=== PATIENT | male | born 1935 | race Caucasian/White ===

== ENCOUNTER 2021-02-05 11:17 | Inpatient (IN) | payer MEDICARE, MEDICAID, SELFPAY ==
[2021-02-05] VITALS (11 sets, daily range): BP systolic 85–123; BP diastolic 41–86; PULSE 106–147; RESP 14–30; O2SAT 92–99; BMI 34.9
--- NOTE | 2021-02-05 11:19 | W.ED.GENADLT ---
HPI - General Adult General: Chief complaint: General Medical Stated complaint: BLOOD IN URINE, ALOC Time Seen by Provider: 02/05/21 11:19 History of Present Illness: HPI narrative: Len Burgess is an 85-year-old gentleman with unclear past medical history presents emerged department due to altered mental status. At baseline he does reside in a custodial however is ambulatory and talkative and oriented. Starting an unclear amount of time ago he became altered and had hematuria. History is otherwise limited by mental status. The patient provides no supplemental history. 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, suprarenal Atrial fibrillation CHF (congestive heart failure) COVID-19 (01/21/21) Positive test at [facility] facility 01/21/2021 Negative rapid antigen here 02/05/2021 COVID-19 vaccine administered GERD (gastroesophageal reflux disease) Gross hematuria Hyperlipidemia Hypertension Prosthetic eye globe Right eye Urinary retention Social History (Updated 02/05/21 @ 23:29 by Kimberli Henry MD) Smoking and tobacco status: former smoker Alcohol intake: former Marital status: / Current occupational status: retired Physical Exam Narrative: EXAM NARRATIVE: GENERAL/CONSTITUTIONAL -ill-appearing. Moaning Eyes - PERRL, right eye mild injection and drainage ENMT - Atraumatic external nose and ears. Moist mucous membranes NECK -kyphosis. Trachea midline. CARDIOVASCULAR -A. fib with RVR. RESPIRATORY -coarse breath sounds with transmitted upper airway noises. Tachypnea.. No retractions or accessory muscle use. ABDOMEN/GI -patient moans to palpation but otherwise limited assessment MSK - Extremities without obvious deformity or tenderness to palpation SKIN -cool, Dry NEURO -appears to move all extremities. Moaning. No other history provided. PSYCH - impaired cognition and memory. Course ED course: - Patient was seen and evaluated by me at bedside - Patient placed on cardiac monitors, IV access obtained - Initial evaluation notable for ill appearance as noted above, patient appears toxic with A. fib with RVR. -Fluids and antibiotics ordered. Rate control ordered. - Labs notable for Leukocytosis, hemoconcentration. Metabolic panel notable for markedly elevated BUN and elevated creatinine with somewhat unclear baseline. Procalcitonin elevated. Urinalysis not concerning for urinary tract infection. - Imaging notable for no evidence of acute intercranial hemorrhage for reason of altered mental status. No intra-abdominal pathology as source of infection. Patient has multifocal pneumonia. -Patient did have improvement with heart rate and overall clinical appearance with rate control. Given septic shock I was hesitant to add additional rate control agents once heart rate stayed around 100-110 given likely need for increased cardiac output in the context of critical illness. -Initially discussed the case with the hospitalist however there are no ICU bed available at this facility. -Attempted transfer for a number of hours without acceptance -Patient's overall clinical picture remains critical but he improved with mild improvement in labs and mental status/overall impression. -Patient was reevaluated by hospitalist service and will be accepted - Based on patient history, evaluation, labs, and imaging as interpreted the most likely cause of the patient's condition is severe sepsis, uremia, altered mental status, and atrial fibrillation with RVR. - Early in ED course I did speak with the patient's daughter and updated her on his condition. She wants all interventions including CPR with exception of intubation and mechanical ventilation. - Patient admitted in serious condition though overall improved from usual clinical presentation - Additional critical care time was necessary on this patient to prevent life-threatening deterioration given the duration of ED stay. Vital Signs: Vital signs: Vital Signs Temperature 97.6 F 02/06/21 16:00 Pulse Rate 101 H 02/07/21 05:07 Respiratory Rate 29 H 02/07/21 04:00 Blood Pressure 106/64 02/07/21 04:00 Pulse Oximetry 80 L 02/06/21 01:15 [facility] - General Adult Medical Records: Attestation: I reviewed the patient's medical records. Lab Data: Attestation: I reviewed the patient's lab results. Labs: Lab Results 02/05/21 02/05/21 02/05/21 Range/Units 11:28 11:28 11:28 WBC 19.2 H (4.0-10.0) 10^3/ uL RBC 5.58 H (4.1-5.3) 10^6/u L Hgb 17.9 H (11.7-16.6) g/dL Hct 53.4 H (42.0-52.0) % MCV 95.7 H (80-94) fl MCH 32.1 (28.0-34.0) pg MCHC 33.5 (30.0-36.0) g/dL RDW 13.6 (12.1-15.1) % Plt Count 321 (130-400) 10^3/c mm MPV 11.5 H (7.4-10.4) fL Neut % (Auto) 87.6 % Lymph % (Auto) 5.3 % [place] % (Auto) 5.6 % Eos % (Auto) 0.0 % Baso % (Auto) 0.5 % Neut # (Auto) 16.81 H (1.8-7.7) 10^3/u L Lymph # (Auto) 1.0 (0.8-4.8) 10^3/u L [place] # (Auto) 1.1 H (0.2-0.9) 10^3/u L Eos # (Auto) 0.0 (0.0-0.8) 10^3/u L Baso # (Auto) 0.1 (0.0-0.1) 10^3/u L Nucleated RBC % (a uto) 0.1 % Nucleated RBCs # 0.0 /100WBC Sodium 143 (136-145) mmol/L Potassium 3.8 (3.5-5.1) mmol/L Chloride 91 L (98-107) mmol/L Carbon Dioxide 33 H (22-29) mmol/L Anion Gap 22.8 H (5-19) BUN 112 H* (8-23) mg/dL Creatinine 2.8 H (0.7-1.2) mg/dL GFR Calculation Not Reportable Glucose 237 H (65-115) mg/dL POC Glucose (70-110) mg/dL Calculated Osmolal ity 339 H (285-295) mOsm/k g Lactic Acid (0.5-2.2) mmol/L Lactic Acid (Sepsi s) (0.5-2.2) mmol/L Uric Acid (3.4-7.0) mg/dL Calcium 8.9 (8.5-10.5) mg/dL Phosphorus (2.5-4.5) mg/dL Magnesium (1.7-2.3) mg/dL Total Bilirubin 0.7 (0.15-1.2) mg/dL AST 23 (0-40) U/L ALT 13 (0-41) U/L Alkaline Phosphata se 94 (40-130) IU/L Creatine Kinase (39-308) U/L Troponin T Baselin e 70 H (0-15) ng/L Troponin T 120 Min [place] (0-15) ng/L Delta Troponin T (0-10) ABS# Troponin T Hi Sens 6Hr (0-15) ng/L Troponin T Hi Sens 6Hr Delta (0-12) ng/L Total Protein 7.5 (6.6-8.7) g/dL Albumin 3.5 (3.5-5.2) g/dL Globulin 4.0 (1.3-4.6) g/dL Procalcitonin 0.27 (0-0.5) ng/mL Urine Color (Yellow) Urine Appearance (CLEAR) Urine pH (5-7) Ur Specific Gravit y (1.005-1.030) Urine Protein (Negative) Urine Glucose (UA) (Normal) Urine Ketones (Negative) Urine Blood (Negative) Urine Nitrate (Negative) Urine Bilirubin (Negative) Urine Urobilinogen (Negative) mg/dL Ur Leukocyte Marti ase (Negative) Urine RBC (0-2) /hpf Urine WBC (0-5) /hpf Ur Squamous Epith Cells (0-5) /hpf Amorphous Sediment Urine Bacteria (NONE) /hpf SARS-CoV-2 Ag (Rap id) (Negative) 02/05/21 02/05/21 02/05/21 Range/Units 13:08 13:08 15:10 WBC (4.0-10.0) 10^3/ uL RBC (4.1-5.3) 10^6/u L Hgb (11.7-16.6) g/dL Hct (42.0-52.0) % MCV (80-94) fl MCH (28.0-34.0) pg MCHC (30.0-36.0) g/dL RDW (12.1-15.1) % Plt Count (130-400) 10^3/c mm MPV (7.4-10.4) fL Neut % (Auto) % Lymph % (Auto) % [place] % (Auto) % Eos % (Auto) % Baso % (Auto) % Neut # (Auto) (1.8-7.7) 10^3/u L Lymph # (Auto) (0.8-4.8) 10^3/u L [place] # (Auto) (0.2-0.9) 10^3/u L Eos # (Auto) (0.0-0.8) 10^3/u L Baso # (Auto) (0.0-0.1) 10^3/u L Nucleated RBC % (a uto) % Nucleated RBCs # /100WBC Sodium (136-145) mmol/L Potassium (3.5-5.1) mmol/L Chloride (98-107) mmol/L Carbon Dioxide (22-29) mmol/L Anion Gap (5-19) BUN (8-23) mg/dL Creatinine (0.7-1.2) mg/dL GFR Calculation Glucose (65-115) mg/dL POC Glucose 182 H (70-110) mg/dL Calculated Osmolal ity (285-295) mOsm/k g Lactic Acid 4.1 H* (0.5-2.2) mmol/L Lactic Acid (Sepsi s) (0.5-2.2) mmol/L Uric Acid (3.4-7.0) mg/dL Calcium (8.5-10.5) mg/dL Phosphorus (2.5-4.5) mg/dL Magnesium (1.7-2.3) mg/dL Total Bilirubin (0.15-1.2) mg/dL AST (0-40) U/L ALT (0-41) U/L Alkaline Phosphata se (40-130) IU/L Creatine Kinase (39-308) U/L Troponin T Baselin e (0-15) ng/L Troponin T 120 Min [place] 66.08 H (0-15) ng/L Delta Troponin T -3.92 L (0-10) ABS# Troponin T Hi Sens 6Hr (0-15) ng/L Troponin T Hi Sens 6Hr Delta (0-12) ng/L Total Protein (6.6-8.7) g/dL Albumin (3.5-5.2) g/dL Globulin (1.3-4.6) g/dL Procalcitonin (0-0.5) ng/mL Urine Color (Yellow) Urine Appearance (CLEAR) Urine pH (5-7) Ur Specific Gravit y (1.005-1.030) Urine Protein (Negative) Urine Glucose (UA) (Normal) Urine Ketones (Negative) Urine Blood (Negative) Urine Nitrate (Negative) Urine Bilirubin (Negative) Urine Urobilinogen (Negative) mg/dL Ur Leukocyte Marti ase (Negative) Urine RBC (0-2) /hpf Urine WBC (0-5) /hpf Ur Squamous Epith Cells (0-5) /hpf Amorphous Sediment Urine Bacteria (NONE) /hpf SARS-CoV-2 Ag (Rap id) (Negative) 02/05/21 02/05/21 02/05/21 Range/Units 15:15 16:55 16:55 WBC (4.0-10.0) 10^3/ uL RBC (4.1-5.3) 10^6/u L Hgb (11.7-16.6) g/dL Hct (42.0-52.0) % MCV (80-94) fl MCH (28.0-34.0) pg MCHC (30.0-36.0) g/dL RDW (12.1-15.1) % Plt Count (130-400) 10^3/c mm MPV (7.4-10.4) fL Neut % (Auto) % Lymph % (Auto) % [place] % (Auto) % Eos % (Auto) % Baso % (Auto) % Neut # (Auto) (1.8-7.7) 10^3/u L Lymph # (Auto) (0.8-4.8) 10^3/u L [place] # (Auto) (0.2-0.9) 10^3/u L Eos # (Auto) (0.0-0.8) 10^3/u L Baso # (Auto) (0.0-0.1) 10^3/u L Nucleated RBC % (a uto) % Nucleated RBCs # /100WBC Sodium (136-145) mmol/L Potassium (3.5-5.1) mmol/L Chloride (98-107) mmol/L Carbon Dioxide (22-29) mmol/L Anion Gap (5-19) BUN (8-23) mg/dL Creatinine (0.7-1.2) mg/dL GFR Calculation Glucose (65-115) mg/dL POC Glucose (70-110) mg/dL Calculated Osmolal ity (285-295) mOsm/k g Lactic Acid (0.5-2.2) mmol/L Lactic Acid (Sepsi s) 3.5 H (0.5-2.2) mmol/L Uric Acid (3.4-7.0) mg/dL Calcium (8.5-10.5) mg/dL Phosphorus (2.5-4.5) mg/dL Magnesium (1.7-2.3) mg/dL Total Bilirubin (0.15-1.2) mg/dL AST (0-40) U/L ALT (0-41) U/L Alkaline Phosphata se (40-130) IU/L Creatine Kinase (39-308) U/L Troponin T Baselin e (0-15) ng/L Troponin T 120 Min [place] (0-15) ng/L Delta Troponin T (0-10) ABS# Troponin T Hi Sens 6Hr 59.59 H (0-15) ng/L Troponin T Hi Sens 6Hr Delta -10.41 L (0-12) ng/L Total Protein (6.6-8.7) g/dL Albumin (3.5-5.2) g/dL Globulin (1.3-4.6) g/dL Procalcitonin (0-0.5) ng/mL Urine Color Red (Yellow) Urine Appearance Turbid (CLEAR) Urine pH 7 (5-7) Ur Specific Gravit y 1.005 (1.005-1.030) Urine Protein 3+ H (Negative) Urine Glucose (UA) Norm (Normal) Urine Ketones Negative (Negative) Urine Blood 3+ H (Negative) Urine Nitrate Negative (Negative) Urine Bilirubin Neg (Negative) Urine Urobilinogen Norm (Negative) mg/dL Ur Leukocyte Marti ase 2+ H (Negative) Urine RBC Too numerous to c nt H (0-2) /hpf Urine WBC 15-25 H (0-5) /hpf Ur Squamous Epith Cells 0-4 H (0-5) /hpf Amorphous Sediment Not Reportable Urine Bacteria 2+ H (NONE) /hpf SARS-CoV-2 Ag (Rap id) (Negative) 02/05/21 02/05/21 02/05/21 Range/Units 16:58 21:19 21:19 WBC (4.0-10.0) 10^3/ uL RBC (4.1-5.3) 10^6/u L Hgb (11.7-16.6) g/dL Hct (42.0-52.0) % MCV (80-94) fl MCH (28.0-34.0) pg MCHC (30.0-36.0) g/dL RDW (12.1-15.1) % Plt Count (130-400) 10^3/c mm MPV (7.4-10.4) fL Neut % (Auto) % Lymph % (Auto) % [place] % (Auto) % Eos % (Auto) % Baso % (Auto) % Neut # (Auto) (1.8-7.7) 10^3/u L Lymph # (Auto) (0.8-4.8) 10^3/u L [place] # (Auto) (0.2-0.9) 10^3/u L Eos # (Auto) (0.0-0.8) 10^3/u L Baso # (Auto) (0.0-0.1) 10^3/u L Nucleated RBC % (a uto) % Nucleated RBCs # /100WBC Sodium 143 (136-145) mmol/L Potassium 3.4 L (3.5-5.1) mmol/L Chloride 100 (98-107) mmol/L Carbon Dioxide 28 (22-29) mmol/L Anion Gap 18.4 (5-19) BUN 110 H* (8-23) mg/dL Creatinine 2.2 H (0.7-1.2) mg/dL GFR Calculation Not Reportable Glucose 139 H (65-115) mg/dL POC Glucose (70-110) mg/dL Calculated Osmolal ity 333 H (285-295) mOsm/k g Lactic Acid (0.5-2.2) mmol/L Lactic Acid (Sepsi s) (0.5-2.2) mmol/L Uric Acid 16.6 H (3.4-7.0) mg/dL Calcium 8.3 L (8.5-10.5) mg/dL Phosphorus 5.3 H (2.5-4.5) mg/dL Magnesium 2.9 H (1.7-2.3) mg/dL Total Bilirubin (0.15-1.2) mg/dL AST (0-40) U/L ALT (0-41) U/L Alkaline Phosphata se (40-130) IU/L Creatine Kinase 98 (39-308) U/L Troponin T Baselin e (0-15) ng/L Troponin T 120 Min [place] (0-15) ng/L Delta Troponin T (0-10) ABS# Troponin T Hi Sens 6Hr (0-15) ng/L Troponin T Hi Sens 6Hr Delta (0-12) ng/L Total Protein (6.6-8.7) g/dL Albumin (3.5-5.2) g/dL Globulin (1.3-4.6) g/dL Procalcitonin (0-0.5) ng/mL Urine Color (Yellow) Urine Appearance (CLEAR) Urine pH (5-7) Ur Specific Gravit y (1.005-1.030) Urine Protein (Negative) Urine Glucose (UA) (Normal) Urine Ketones (Negative) Urine Blood (Negative) Urine Nitrate (Negative) Urine Bilirubin (Negative) Urine Urobilinogen (Negative) mg/dL Ur Leukocyte Marti ase (Negative) Urine RBC (0-2) /hpf Urine WBC (0-5) /hpf Ur Squamous Epith Cells (0-5) /hpf Amorphous Sediment Urine Bacteria (NONE) /hpf SARS-CoV-2 Ag (Rap id) Negative (Negative) EKG Data^: EKG 1: EKG interpretation date: 02/05/21 EKG interpretation time: 11:27 Prior EKG tracings: not available for review Ischemic changes: non-specific ST-T wave changes Interpretation: Twelve-lead EKG shows an irregular rhythm at a rate of 147 without identified P waves. NE interval not applicable, QRS duration 120, QTc 471 Left axis deviation. Interpretation: A. fib with RVR Computer generated interpretation: Chest X-Ray 02/05/21 11:36 IMPRESSION: 1. Coarse chronic pulmonary markings. 2. Trace atelectasis or scar noted in the left lung base. Cervical Spine CT 02/05/21 11:50 IMPRESSION: 1. Quality of this examination is significantly limited by motion. No gross displaced fractures identified. Subtle fractures would easily be missed with this amount of motion. 2. 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 Chest/Abdomen/Pelvis CT 02/05/21 11:50 IMPRESSION: 1. Study is significantly limited by motion artifact. 2. Bilateral multi lobar pulmonary opacifications. Consider aspiration pneumonia. Not a typical distribution for Covid 19 but this should also be considered along with additional causes of pneumonitis. 3. Extensive atherosclerosis thoracic and abdominal aortas. Stable suprarenal abdominal aortic aneurysm to 3.[address] 02/05/21 22:41 IMPRESSION: 1. Right globe prosthesis. Left globe is unremarkable. 2. No acute intracranial abnormality demonstrated. 3. There is no interval change from the prior examination. Radiation Dose CTDIVOL = (mGy): DLP = 851.63 (mGy-cm) EKG 2: Attestation: I personally reviewed and interpreted this EKG as follows: EKG interpretation date: 02/05/21 EKG interpretation time: 13:27 Prior EKG tracings: available for review Interpretation: Twelve-lead EKG shows an irregular rhythm at a rate of 135 without identified P waves. NE interval not applicable, QRS duration 121, QTc 489 Left axis deviation. Interpretation: A. fib with RVR Computer generated interpretation: Chest X-Ray 02/05/21 11:36 IMPRESSION: 1. Coarse chronic pulmonary markings. 2. Trace atelectasis or scar noted in the left lung base. Cervical Spine CT 02/05/21 11:50 IMPRESSION: 1. Quality of this examination is significantly limited by motion. No gross displaced fractures identified. Subtle fractures would easily be missed with this amount of motion. 2. 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 Chest/Abdomen/Pelvis CT 02/05/21 11:50 IMPRESSION: 1. Study is significantly limited by motion artifact. 2. Bilateral multi lobar pulmonary opacifications. Consider aspiration pneumonia. Not a typical distribution for Covid 19 but this should also be considered along with additional causes of pneumonitis. 3. Extensive atherosclerosis thoracic and abdominal aortas. Stable suprarenal abdominal aortic aneurysm to 3.[address] 02/05/21 22:41 IMPRESSION: 1. Right globe prosthesis. Left globe is unremarkable. 2. No acute intracranial abnormality demonstrated. 3. There is no interval change from the prior examination. Radiation Dose CTDIVOL = (mGy): DLP = 851.63 (mGy-cm) EKG 3: Attestation: I personally reviewed and interpreted this EKG as follows: EKG interpretation date: 02/05/21 EKG interpretation time: 17:25 Prior EKG tracings: available for review Interpretation: Twelve-lead EKG shows an irregular rhythm at a rate of 119 without identified P waves. NE interval not applicable, QRS duration 125, QTc 480 Left axis deviation. Interpretation: A. fib with RVR Computer generated interpretation: Chest X-Ray 02/05/21 11:36 IMPRESSION: 1. Coarse chronic pulmonary markings. 2. Trace atelectasis or scar noted in the left lung base. Cervical Spine CT 02/05/21 11:50 IMPRESSION: 1. Quality of this examination is significantly limited by motion. No gross displaced fractures identified. Subtle fractures would easily be missed with this amount of motion. 2. 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 Chest/Abdomen/Pelvis CT 02/05/21 11:50 IMPRESSION: 1. Study is significantly limited by motion artifact. 2. Bilateral multi lobar pulmonary opacifications. Consider aspiration pneumonia. Not a typical distribution for Covid 19 but this should also be considered along with additional causes of pneumonitis. 3. Extensive atherosclerosis thoracic and abdominal aortas. Stable suprarenal abdominal aortic aneurysm to 3.[address] 02/05/21 22:41 IMPRESSION: 1. Right globe prosthesis. Left globe is unremarkable. 2. No acute intracranial abnormality demonstrated. 3. There is no interval change from the prior examination. Radiation Dose CTDIVOL = (mGy): DLP = 851.63 (mGy-cm) Critical Care Time Critical Care Time: Critical Care Time: Yes Total Critical Care Time: 170 Attestation: This case had a high probability of a clinically significant, sudden, or life threatening deterioration of this patient's condition which required my full and direct attention, intervention and personal management. 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
--- NOTE | 2021-02-05 11:36 | XRR_ITS ---
PROCEDURE INFORMATION: Exam: XR Chest Exam date and time: 02/05/2021 11:36 AM Age: 85 years old Clinical indication: Other: AMS TECHNIQUE: Imaging protocol: XR of the chest. Views: 1 view. Total images: 1 COMPARISON: CT abdomen pelvis wo con [id number] 10/22/2020 10:59 AM FINDINGS: Lungs: Coarse chronic pulmonary markings. Trace atelectasis or scar noted in the left lung base. Pleural spaces: Unremarkable. No pleural effusion. No pneumothorax. Heart/Mediastinum: Unremarkable. No cardiomegaly. Vasculature: Atherosclerosis is evident. Bones/joints: Left shoulder arthroplasty. Moderate degenerative changes of the right shoulder are noted. Osseous structures are unchanged from the prior exam. Other findings: X-ray is slightly rotated. XR/XR chest 1V portable [id number] IMPRESSION: 1. Coarse chronic pulmonary markings. 2. Trace atelectasis or scar noted in the left lung base.
--- NOTE | 2021-02-05 11:37 | ECG_ITS ---
[facility] Test Date: 2021-02-05 Pat Name: Len Burgess Department: Room: Gender: Male Physician'S Aide: : [id number] Requested By: Fuentes Kapoor Order Number: [id number] Leighton MD: Kathleen Medina M.D. Measurements Intervals [place] Rate: 147 P: ND: QRS: -73 QRSD: 120 T: 101 QT: 301 QTc: 471 Interpretive Statements ATRIAL FIBRILLATION WITH RAPID VENTRICULAR RESPONSE MARKED LEFT AXIS DEVIATION [QRS AXIS < -30] POSSIBLE RIGHT VENTRICULAR CONDUCTION DELAY [RSR (QR) IN V1/V2] VOLTAGE CRITERIA FOR LVH [MEETS CRITERIA IN ONE OF: R(aVL), S(V1), R(V5), R(V5/V6)+S(V1)] ST DEVIATION AND MODERATE T-WAVE ABNORMALITY, CONSIDER LATERAL ISCHEMIA [-0.1+ mV T WAVE IN I/aVL/V5/V6] No previous ECG available for comparison Electronically Signed On 02-05-2021 16:11:40 CDT by Kathleen Medina M.D. [id number]
--- NOTE | 2021-02-05 11:50 | CT_ITS ---
WS: [id number] CT HEAD NONCONTRAST HISTORY: AMS, ?stroke TECHNIQUE: Contiguous axial imaging performed through the brain in 2.5 mm imaging. Bone and soft tiss ue windows. Sagittal and coronal reformats reviewed. All CT scans at [facility] use at le ast one of these dose optimization techniques: automated exposure control; mA and/or kV adjustment pe r patient size (includes targeted exams where dose is matched to clinical indication); or iterative r econstruction. DLP: 1844.92 mGy.cm COMPARISON: None available. Study compromised by motion artifact. No acute intracranial hemorrhage, midline shift or mass effect. Moderate bilateral atrophy and chronic ischemic disease. No acute infarcts. Ventricles: Ventricles and extra-axial spaces are prominent on the basis of central and peripheral a trophy. Paranasal sinuses: As visualized are clear. Mastoid air cells: Well pneumatized. Calvarium and scalp: Skull is intact with no soft tissue edema or swelling. RIGHT globe prosthesis. Possible small aneurysm measuring 5 mm near the anterior communicating artery. May simply be tortuosi ty and ectatic vessel. CT/CT head wo con* [id number] IMPRESSION: 1. No acute intracranial hemorrhage or edema. 2. Moderate atrophy and chronic ischemic disease. 3. Indeterminate for 5 mm anterior communicating artery aneurysm. No evidence for rupture. Recommend follow-up CT angiogram of the [place]. Patient is having a very difficult time remaining still for the CT evaluations. Recomme nd follow-up for when the patient is able to hold still and follow commands.
--- NOTE | 2021-02-05 11:50 | CT_ITS ---
WS: [id number] CT CHEST, ABDOMEN AND PELVIS WITHOUT CONTRAST. HISTORY: AMS, course breath sounds, abd pain TECHNIQUE: Contiguous 5 mm axial imaging performed through the chest, abdomen and pelvis without IV c ontrast, oral contrast has not been provided. Coronal and sagittal reformats chest. Coronal and sagit he reformats through the abdomen and pelvis. All CT scans at [facility] use at least one of these dose optimization techniques: automated exposure control; mA and/or kV adjustment per patie nt size (includes targeted exams where dose is matched to clinical indication); or iterative reconstr uction. CONTRAST: None DLP: 2198.31 mGy.cm COMPARISON: 10/22/[address]: Diffuse moderate multilobar pulmonary opacifications. Opacifications bilaterally but slight ly greater on the RIGHT. More focal increasing dense consolidation at the RIGHT lung base. Extensive atherosclerosis aorta. Normal size pulmonary artery. No mediastinal or hilar adenopathy. No pleural e ffusions or pneumothorax. Soft tissue nodule measures 15 mm in the anterior LEFT chest wall is probab ly gynecomastia. Abdomen CT: Mild cholelithiasis without evidence for acute cholecystitis. Liver and spleen are negati ve. Severe fatty replacement of the pancreas. No adrenal mass. Normal kidneys with mild atrophy. Exte nsive atherosclerosis of the aorta. Mild saccular aneurysmal dilatation of the suprarenal aorta, 3.6 cm. Minimal enlargement since 10/22/2020. Extensive atherosclerosis infrarenal aorta extending into th e iliac arteries. No adenopathy or ascites. No GI tract obstruction. Pelvic CT: Mckeon catheter within the urinary bladder. Thick walled urinary bladder. Bilateral patent inguinal canals containing fat only. Diffuse spondylitic changes throughout the thoracic and lumbar spine. Osteopenia. CT/CT chest abd pel wo con IMPRESSION: 1. Study is significantly limited by motion artifact. 2. Bilateral multi lobar pulmonary opacifications. Consider aspiration pneumon ia. Not a typical distribution for Covid 19 but this should also be considered along with additional causes of pneumonitis. 3. Extensive atherosclerosis thoracic and abdominal aortas. Stable suprarenal abdominal aortic aneurysm to 3.6 cm.
--- NOTE | 2021-02-05 11:50 | CT_ITS ---
WS: [id number] CT CERVICAL SPINE HISTORY: AMS, ?trauma TECHNIQUE: Contiguous 2.5 mm axial imaging performed through the entire cervical spine. Sagittal and coronal reformats also performed. All CT scans at [facility] use at least one of these do se optimization techniques: automated exposure control; mA and/or kV adjustment per patient size (inc ludes targeted exams where dose is matched to clinical indication); or iterative reconstruction. DLP: 1513.29 mGy.cm COMPARISON: None available. Quality of this examination is significantly limited by motion artifact. Straightening of the normal cervical lordosis. C7 anterolisthesis by 4 mm. Severe disc space narrowin g from C3-4 to C7-T1. Endplate osteophytes and osteopenia. There is at least partial ankylosis at C5- 6 and C6-7 across the vertebral bodies and also the facets joints. This examination is inadequate to exclude disc protrusions and possibly fractures due to significant amount of motion. Bilateral marked facet joint arthritis. Lateral masses are aligned odontoid process is intact. CT/CT cervical spin wo con* [id number] IMPRESSION: 1. Quality of this examination is significantly limited by motion. No gross di splaced fractures identified. Subtle fractures would easily be missed with this amount of motion. 2. Advanced degenerative disc disease and facet arthritis throughout the cervi patricia spine.
[2021-02-05 11:51] LABS: Basophils # 0.1 10^3/uL (0.0-0.1); Basophils % 0.5 %; Hematocrit 53.4 % (42.0-52.0); Hemoglobin 17.9 g/dL (11.7-16.6); Lymphocytes % 5.3 %; Mean Corpuscular HGB Conc 33.5 g/dL (30.0-36.0); Mean Corpuscular Hemoglobin 32.1 pg (28.0-34.0); Mean Corpuscular Volume 95.7 fl (80-94); Mean Platelet Volume 11.5 fL (7.4-10.4); Monocytes # 1.1 10^3/uL (0.2-0.9); Monocytes % 5.6 %; Neutrophils # 16.81 10^3/uL (1.8-7.7); Neutrophils % 87.6 %; Nucleated Red Blood Cells % 0.1 %; Platelet Count 321 10^3/cmm (130-400); Red Blood Count 5.58 10^6/uL (4.1-5.3); Red Cell Distribution Width 13.6 % (12.1-15.1); White Blood Count 19.2 10^3/uL (4.0-10.0)
[2021-02-05 12:11] LABS: Troponin(5th) Baseline 70 ng/L (0-15)
[2021-02-05] MEDS: LORazepam 2 mg/mL INJ 1 mL 1 MG IVP (12:13)
--- NOTE | 2021-02-05 12:22 | PC.PHAR ---
PT IS FROM [facility]-NOVEMBER FROM [facility] STATES THE PT ONLY TOOK TYLENOL AND LASIX TODAY
[2021-02-05] MEDS: piperacillin-tazobactam 4.5 GM in sodium chloride 0.9% (plus) 50 ML IV (12:40)
[2021-02-05 12:48] LABS: Alanine Aminotransferase 13 U/L (0-41); Albumin Level 3.5 g/dL (3.5-5.2); Alkaline Phosphatase 94 IU/L (40-130); Anion Gap 22.8 (5-19); Aspartate Amino Transferase 23 U/L (0-40); Calcium 8.9 mg/dL (8.5-10.5); Carbon Dioxide 33 mmol/L (22-29); Chloride 91 mmol/L (98-107); Glucose 237 mg/dL (65-115); Potassium 3.8 mmol/L (3.5-5.1); Procalcitonin 0.27 ng/mL (0-0.5); Sodium 143 mmol/L (136-145); Total Bilirubin 0.7 mg/dL (0.15-1.2); Total Protein 7.5 g/dL (6.6-8.7)
[2021-02-05 13:30] LABS: Osmolality Calculated 339 mOsm/kg (285-295)
[2021-02-05 13:37] LABS: Blood Urea Nitrogen 112 mg/dL (8-23)
--- NOTE | 2021-02-05 13:37 | ECG_ITS ---
[facility] Test Date: 2021-02-05 Pat Name: Len Burgess Department: Room: Gender: Male Envelope Addresser: : 1935 Requested By: Fuentes Kapoor Order Number: [id number] Leighton MD: Kathleen Medina M.D. Measurements Intervals [place] Rate: 135 P: [place]: QRS: -72 QRSD: 121 T: 103 QT: 326 QTc: 489 Interpretive Statements ATRIAL FIBRILLATION WITH RAPID VENTRICULAR RESPONSE LEFT AXIS DEVIATION [QRS AXIS < -30] MODERATE INTRAVENTRICULAR CONDUCTION DELAY [110+ ms QRS DURATION] MODERATE VOLTAGE CRITERIA FOR LVH, CONSIDER NORMAL VARIANT ST DEVIATION AND MODERATE T-WAVE ABNORMALITY, CONSIDER LATERAL ISCHEMIA Compared to ECG 02/05/2021 11:27:40 Intraventricular conduction delay now present T-wave abnormality still present Possible ischemia still present Electronically Signed On 02-05-2021 16:41:01 CDT by Kathleen Medina M.D. [id number]
[2021-02-05 13:38] LABS: Troponin 5 2HR 66.08 ng/L (0-15)
[2021-02-05 13:51] LABS: Troponin 5 2HR Delta -3.92 ABS# (0-10)
[2021-02-05 14:05] LABS: Lactic Sepsis W/Reflex 4.1 mmol/L (0.5-2.2)
[2021-02-05 15:02] LABS: Reflex Lactate Order REFLEX LACTIC ORDERD
[2021-02-05 15:19] LABS: Glucose Point of Care 182 mg/dL (70-110)
[2021-02-05 16:03] LABS: Add Urine Microscopic? YES; Bilirubin Urine Neg (Negative); Blood Urine 3+ (Negative); Glucose Urine UA Norm (Normal); Ketones Urine Negative (Negative); Leukocyte Esterase Urine 2+ (Negative); Nitrate Urine Negative (Negative); Protein Urine 3+ (Negative); Specific Gravity, Urine 1.005 (1.005-1.030); Urine Appearance Turbid (CLEAR); Urine Color Red (Yellow); Urobilinogen Urine Norm (Negative); pH Urine 7 (5-7)
[2021-02-05 16:05] LABS: Bacteria Urine 2+ /hpf; RBC Urine TOO NUMEROUS TO CNT /hpf (0-2); Squamous Epithelial Cell Urine 0-4 /hpf (0-5)
[2021-02-05 16:06] LABS: Add Urine Culture? Yes; WBC Urine 15-25 /hpf (0-5)
--- NOTE | 2021-02-05 17:37 | ECG_ITS ---
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 Measurements Intervals [place] Rate: 119 P: [place]: QRS: -73 QRSD: 125 T: 107 QT: 340 QTc: 480 Interpretive Statements ATRIAL FIBRILLATION WITH RAPID VENTRICULAR RESPONSE WITH ABERRANT CONDUCTION OR VENTRICULAR PREMATURE COMPLEXES LEFT AXIS DEVIATION RIGHT BUNDLE BRANCH BLOCK MODERATE VOLTAGE CRITERIA FOR LVH, CONSIDER NORMAL VARIANT Compared to ECG 02/05/2021 13:20:33 Ventricular premature complex(es) now present Aberrant conduction of supraventricular beat(s) now present Right bundle-branch block now present Intraventricular conduction delay no longer present T-wave abnormality no longer present Possible ischemia no longer present Electronically Signed On 02-06-2021 12:50:30 CDT by Kathleen Medina M.D. [id number]
[2021-02-05 17:54] LABS: SARS Covid-2 Antigen Negative (Negative)
[2021-02-05 18:10] LABS: Troponin 5 6HR 59.59 ng/L (0-15)
[2021-02-05 18:18] LABS: Lactic Acid level (Lactate) 3.5 mmol/L (0.5-2.2)
[2021-02-05] MEDS: sodium chlor 0.9% + KCl 40 mEq 40 MEQ/1,000 ML BAG 75 MEQ IV (19:42)
[2021-02-05 21:49] LABS: Calcium 8.3 mg/dL (8.5-10.5); Carbon Dioxide 28 mmol/L (22-29); Chloride 100 mmol/L (98-107); Glucose 139 mg/dL (65-115); Osmolality Calculated 333 mOsm/kg (285-295); Sodium 143 mmol/L (136-145)
[2021-02-05 21:52] LABS: Anion Gap 18.4 (5-19); Potassium 3.4 mmol/L (3.5-5.1)
[2021-02-05 21:54] LABS: Blood Urea Nitrogen 110 mg/dL (8-23)
--- NOTE | 2021-02-05 22:41 | CTR_ITS ---
PROCEDURE INFORMATION: Exam: CT Head Without Contrast Exam date and time: 02/05/2021 10:41 PM Age: 85 years old Clinical indication: Patient HX: New onset of anisocoria. ; Additional info: Altered mental status, unequal pupils, ? new TECHNIQUE: Imaging protocol: Computed tomography of the head without contrast. Radiation optimization: All CT scans at this facility use at least one of these dose optimization techniques: automated exposure control; mA and/or kV adjustment per patient size (includes targeted exams where dose is matched to clinical indication); or iterative reconstruction. COMPARISON: CT head wo con* [id number] 02/05/2021 1:29 PM RADIATION DOSE METRICS: Total DLP (mGy-cm): 851.63 FINDINGS: Brain: Advanced parenchymal volume loss noted. There is decreased attenuation of the periventricular white matter, consistent with advanced chronic microangiopathic white matter disease. No intracranial hemorrhage noted. No parenchymal edema identified. Cerebral ventricles: No ventriculomegaly. Paranasal sinuses: Visualized sinuses are unremarkable. No fluid levels. Mastoid air cells: Unremarkable as visualized. No mastoid effusion. Orbital cavity: Right globe prosthesis. Left globe is unremarkable. Vasculature: Focal ectasia versus aneurysm of the anterior communicating artery, unchanged. Bones/joints: Unremarkable. No acute fracture. Soft tissues: Unremarkable. CT/CT head wo con* [id number] IMPRESSION: 1. Right globe prosthesis. Left globe is unremarkable. 2. No acute intracranial abnormality demonstrated. 3. There is no interval change from the prior examination. Radiation Dose CTDIVOL = (mGy): DLP = 851.63 (mGy-cm)
--- NOTE | 2021-02-05 22:54 | PC.PHAR ---
Vancomycin is dosed at 1gm IVPB every 24 hours to produce a predicted trough level of 16.94 (population based pharmacokinetic analysis). A trough level has been ordered from the lab to be obtained before the fourth dose to confirm and adjust if needed. The Zosyn is dosed at 3.375gm IVPB every 8 hours on basis of creatinine clearance of 29.78, each dose to be infused over four hours per extended infusion protocol.
--- NOTE | 2021-02-05 23:04 | PM.HP ---
Providers/Chief Complaint Admitting Physician: Kimberli Henry MD Primary Care Provider: Manish Pimentel Chief Complaint: BLOOD IN URINE, ALOC History of Present Illness Len Burgess is a 85 year old male from a snf in [place] who was sent in due to blood in the urine and altered mental status. According to available records, he is talkative and oriented at baseline. There is a mention of him being ambulatory but a recent note from outpatient indicates that he has required Kaleb lift as recently as December. He follows with Dr. Medeiros and has had issues with urinary retention and hematuria. He has had a Moore catheter at least since late December continuously with recommendation at that time for catheter to be maintained. Notes from October of this year indicate hematuria as well as UTIs also. A note from Dr. Pimentel today indicates that patient was in a chair moaning and noted to have bright red blood in the Moore catheter. There is an indication that he had oxygen saturation as low as 71% for which she was put on oxygen by nasal cannula. Blood pressure was 90s over 40s and heart rate was 40s to 80s per this note. He had been started on Augmentin on February 03. He was sent to the emergency room here for further evaluation since he does follow with Dr. Medeiros. On arrival here patient was noted to be tachycardic with a regular rhythm. He also had some hypotension, elevated lactic acid and other abnormal labs as noted below. He was given some IV fluids and started on a Cardizem drip. He was also initiated on vancomycin and Zosyn. Clinically he was felt to need ICU level care. With management in the ER heart rate has improved, while still on the Cardizem drip into the 1 teens to 120s at most. Patient is not back to baseline but is less lethargic than he had been. Request was made for reevaluation to discern if he could now be admitted to our facility. I am unable to get any information directly from him. At the time of my examination, he had irregular pupils with the left pupil larger than right pupil although both were reactive. Reviewed with ER provider and this was a change from previous examination. Patient is chronically on Eliquis due to atrial fibrillation. Vital signs at the time of my evaluation included heart rate 110-115 on 15 mics of diltiazem, blood pressure 120/86, pulse 94, respirations 24. History is obtained from limited available records. CODE STATUS was discussed with a daughter during daytime hours. She indicated everything was okay except for no intubation or mechanical ventilation. Review of Systems General: Reports: ROS unobtainable due to medical condition and ROS unobtainable due to mental status Medications/Allergies Home Medications Medication Instructions Recorded Confirmed Last Taken Type acetaminophen 325 mg capsule 650 mg PO Q4H PRN cap 10/26/20 02/05/21 02/05/21 08:30 History apixaban 5 mg tablet 5 mg PO BID@10/26/20 02/05/21 02/04/21 History atorvastatin 80 mg tablet 80 mg PO DAILY@10/26/20 02/05/21 02/04/21 History diclofenac sodium 1 % topical gel 2 g TOPICAL TID PRN g 10/26/20 02/05/21 Unknown History diltiazem HCl 180 mg 180 mg PO DAILY@10/26/20 02/05/21 02/04/21 History capsule,extended release 24 hr furosemide 40 mg tablet 40 mg PO BID@10/26/20 02/05/21 02/05/21 06:13 History magnesium hydroxide 400 mg/5 mL 30 ml PO .EVERY 3 DAYS PRN ml 10/26/20 02/05/21 01/30/21 History oral suspension metolazone 5 mg tablet 5 mg PO DAILY@10/26/20 02/05/21 02/04/21 History multivitamin 1 tab PO DAILY@10/26/20 02/05/21 02/04/21 History omeprazole 20 mg capsule,delayed 20 mg PO DAILY@10/26/20 02/05/21 02/04/21 History release polyethylene glycol 3350 17 17 g PO DAILY PRN 10/26/20 02/05/21 01/27/21 History gram/dose oral powder amoxicillin-pot clavulanate 1 tab PO BID 02/05/21 02/05/21 02/04/21 History [Augmentin] potassium chloride 40 meq PO BID@02/05/21 02/05/21 02/04/21 History Allergies Allergy/AdvReac Type Severity Reaction Status Date / Time No Known Allergies Allergy Verified 02/05/21 11:37 Additional Medication Information I personally reviewed home medication list and medications received day of admission thus far. [facility] Acute PFSH: Medical History (Updated 02/05/21 @ 23:56 by Kimberli Henry MD) Abdominal aortic aneurysm 3.6 cm, suprarenal Atrial fibrillation CHF (congestive heart failure) COVID-19 (01/21/21) Positive test at [facility] 01/21/2021 Negative rapid antigen here 02/05/2021 COVID-19 vaccine administered GERD (gastroesophageal reflux disease) Gross hematuria Hyperlipidemia Hypertension Urinary retention Social History (Updated 02/05/21 @ 23:29 by Kimberli Henry MD) Smoking and tobacco status: former smoker Alcohol intake: former Marital status: / Current occupational status: retired Supplemental PFS Information: unable to obtain surgical, family, social or medical history beyond what is noted above due to current clinical condition Vitals/I&O/Wt Last Vital Signs Pulse 110 H 02/05/21 21:42 Resp 24 H 02/05/21 21:42 BP 120/86 02/05/21 21:42 Pulse Ox 94 02/05/21 21:42 02/05/21 02/05/21 02/06/21 14:59 22:59 06:59 Intake Total 1.75 / 206.75 115.25 / 2177.00 Balance 1.75 / 2060.75 115.25 / 2177.00 Weight last 48 hrs Weight 104.326 kg Physical Exam Narrative: EXAM NARRATIVE: Constitutional: Moaning, will respond to painful stimuli but not answer any questions or follow commands, ill-appearing HEENT: Left pupil is larger than right pupil but both are reactive, nasopharynx with dry membranes, oropharynx with very dry mucous membranes, mucus noted to the back of the throat, edentulous Neck: Range of motion intact side to side, not able to get chin to chest but does have range of motion front to back Respiratory: Tachypneic, shallow respirations, decreased at bases, no obvious wheezes or crackles, not currently with accessory muscle use although mouth breathing Cardiovascular: Tachycardic, irregular rhythm, distant heart sounds Abdomen: Soft, nontender, decreased bowel sounds, nondistended : Moore catheter in place with gross hematuria, darker in color currently with some clotting noted in the tube Extremities: Trace edema Skin: Scattered bruising particularly to both forearms, skin otherwise dry and pale with scattered areas of minor abrasions in different stages of healing Neuro: Moves all extremities but does not follow commands, toes are equivocal, intermittent jerking movements without a repeated pattern Psych: Currently only responsive to painful stimuli and otherwise moaning Urinary Catheter Management^: Moore: Cath Placed During This Visit: yes Urinary Catheter Date of Insertion: 02/05/21 Urinary Catheter Time of Insertion: 15:01 Data : 02/05/21 11:28 02/05/21 21:19 Micro: Microbiology 02/05/21 13:13 Blood Culture - Preliminary Blood SPECIMEN COLLECTED 02/05/21 13:08 Blood Culture - Preliminary Blood SPECIMEN COLLECTED Other data: Laboratory Results WBC 19.2 10^3/uL (4.0-10.0) H 02/05/21 11:28 RBC 5.58 10^6/uL (4.1-5.3) H 02/05/21 11:28 Hgb 17.9 g/dL (11.7-16.6) H 02/05/21 11:28 Hct 53.4 % (42.0-52.0) H 02/05/21 11:28 MCV 95.7 fl (80-94) H 02/05/21 11:28 MCH 32.1 pg (28.0-34.0) 02/05/21 11:28 MCHC 33.5 g/dL (30.0-36.0) 02/05/21 11:28 RDW 13.6 % (12.1-15.1) 02/05/21 11:28 Plt Count 321 10^3/cmm (130-400) 02/05/21 11:28 MPV 11.5 fL (7.4-10.4) H 02/05/21 11:28 Neut % (Auto) 87.6 % 02/05/21 11:28 Lymph % (Auto) 5.3 % 02/05/21 11:28 [place] % (Auto) 5.6 % 02/05/21 11:28 Eos % (Auto) 0.0 % 02/05/21 11:28 Baso % (Auto) 0.5 % 02/05/21 11:28 Neut # (Auto) 16.81 10^3/uL (1.8-7.7) H 02/05/21 11:28 Lymph # (Auto) 1.0 10^3/uL (0.8-4.8) 02/05/21 11:28 [place] # (Auto) 1.1 10^3/uL (0.2-0.9) H 02/05/21 11:28 Eos # (Auto) 0.0 10^3/uL (0.0-0.8) 02/05/21 11:28 Baso # (Auto) 0.1 10^3/uL (0.0-0.1) 02/05/21 11:28 Nucleated RBC % (auto) 0.1 % 02/05/21 11:28 Nucleated RBCs # 0.0 /100WBC 02/05/21 11:28 Sodium 143 mmol/L (136-145) 02/05/21 21:19 Potassium 3.4 mmol/L (3.5-5.1) L 02/05/21 21:19 Chloride 100 mmol/L (98-107) 02/05/21 21:19 Carbon Dioxide 28 mmol/L (22-29) 02/05/21 21:19 Anion Gap 18.4 (5-19) 02/05/21 21:19 BUN 110 mg/dL (8-23) H* 02/05/21 21:19 Creatinine 2.2 mg/dL (0.7-1.2) H 02/05/21 21:19 GFR Calculation Not Reportable 02/05/21 21:19 Glucose 139 mg/dL (65-115) H 02/05/21 21:19 POC Glucose 182 mg/dL (70-110) H 02/05/21 15:10 Calculated Osmolality 333 mOsm/kg (285-295) H 02/05/21 21:19 Lactic Acid 4.1 mmol/L (0.5-2.2) H* 02/05/21 13:08 Lactic Acid (Sepsis) 3.5 mmol/L (0.5-2.2) H 02/05/21 16:55 Calcium 8.3 mg/dL (8.5-10.5) L 02/05/21 21:19 Total Bilirubin 0.7 mg/dL (0.15-1.2) 02/05/21 11:28 AST 23 U/L (0-40) 02/05/21 11:28 ALT 13 U/L (0-41) 02/05/21 11:28 Alkaline Phosphatase 94 IU/L (40-130) 02/05/21 11:28 Troponin T Baseline 70 ng/L (0-15) H 02/05/21 11:28 Troponin T 120 Minute 66.08 ng/L (0-15) H 02/05/21 13:08 Delta Troponin T -3.92 ABS# (0-10) L 02/05/21 13:08 Troponin T Hi Sens 6Hr 59.59 ng/L (0-15) H 02/05/21 16:55 Troponin T Hi Sens 6Hr Delta -10.41 ng/L (0-12) L 02/05/21 16:55 Total Protein 7.5 g/dL (6.6-8.7) 02/05/21 11:28 Albumin 3.5 g/dL (3.5-5.2) 02/05/21 11:28 Globulin 4.0 g/dL (1.3-4.6) 02/05/21 11:28 Procalcitonin 0.27 ng/mL (0-0.5) 02/05/21 11:28 Urine Color Red (Yellow) 02/05/21 15:15 Urine Appearance Turbid (CLEAR) 02/05/21 15:15 Urine pH 7 (5-7) 02/05/21 15:15 Ur Specific Britt 1.005 (1.005-1.030) 02/05/21 15:15 Urine Protein 3+ (Negative) H 02/05/21 15:15 Urine Glucose (UA) Norm (Normal) 02/05/21 15:15 Urine Ketones Negative (Negative) 02/05/21 15:15 Urine Blood 3+ (Negative) H 02/05/21 15:15 Urine Nitrate Negative (Negative) 02/05/21 15:15 Urine Bilirubin Neg (Negative) 02/05/21 15:15 Urine Urobilinogen Norm mg/dL (Negative) 02/05/21 15:15 Ur Leukocyte Esterase 2+ (Negative) H 02/05/21 15:15 Urine RBC Too numerous to cnt /hpf (0-2) H 02/05/21 15:15 Urine WBC 15-25 /hpf (0-5) H 02/05/21 15:15 Ur Squamous Epith Cells 0-4 /hpf (0-5) H 02/05/21 15:15 Amorphous Sediment Not Reportable 02/05/21 15:15 Urine Bacteria 2+ /hpf (NONE) H 02/05/21 15:15 SARS-CoV-2 Ag (Rapid) Negative (Negative) 02/05/21 16:58 Impressions Chest X-Ray 02/05/21 11:36 IMPRESSION: 1. Coarse chronic pulmonary markings. 2. Trace atelectasis or scar noted in the left lung base. Cervical Spine CT 02/05/21 11:50 IMPRESSION: 1. Quality of this examination is significantly limited by motion. No gross displaced fractures identified. Subtle fractures would easily be missed with this amount of motion. 2. 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 Chest/Abdomen/Pelvis CT 02/05/21 11:50 IMPRESSION: 1. Study is significantly limited by motion artifact. 2. Bilateral multi lobar pulmonary opacifications. Consider aspiration pneumonia. Not a typical distribution for Covid 19 but this should also be considered along with additional causes of pneumonitis. 3. Extensive atherosclerosis thoracic and abdominal aortas. Stable suprarenal abdominal aortic aneurysm to 3.[address] 02/05/21 11:50 IMPRESSION: 1. No acute intracranial hemorrhage or edema. 2. Moderate atrophy and chronic ischemic disease. 3. Indeterminate for 5 mm anterior communicating artery aneurysm. No evidence for rupture. Recommend follow-up CT angiogram of the [place]. Patient is having a very difficult time remaining still for the CT evaluations. Recommend follow-up for when the patient is able to hold still and follow commands. EKG: Afib with RVR Prior or outside records reviewed: snf, available clinic visits with Dr Medeiros, ED record today A&P Assessment and plan (1) Acute encephalopathy: Multifactorial from azotemia, urinary tract infection, atrial fibrillation with rapid ventricular response and effects of severe sepsis Status: Acute (2) Severe sepsis: As evidenced by tachycardia, hypotension, lactic acidosis, suspected urinary tract infection, acute encephalopathy, acute renal failure. Fluid responsive presently. Status: Acute (3) Complicated urinary tract infection: In patient with chronic moore Status: Acute (4) Gross hematuria: Has had recurrent issues with such this year, has a moore and on eliquis chronically, seejacobo Medeiros outpatient Status: Acute (5) Acute renal failure: Baseline Cr around 1.2. Significant azotemia curerntly, home med list with lasix, metolazone, diclofenac topical. No reported GI bleeding. Seems very dry clinically also. Status: Acute Qualifiers: Acute renal failure type: unspecified Qualified Code(s): N17.9 - Acute kidney failure, unspecified (6) Atrial fibrillation with rapid ventricular response: Clinically dry but also related to infection. Chronic afib on diltiazem and eliquis. Status: Acute (7) COVID-19: Positive test at [facility] 01/21/2021, negative rapid antigen here 02/05/2021. CT scan with opacties in lungs, reportely hypoxic at time of transfer from SNF to ED but not currently requiring oxygen. PCR test pending. Status: Acute (8) Chronic anticoagulation: Usually on eliquis 5 mg bid Status: Chronic (9) CHF (congestive heart failure): Type unknown Status: Acute Qualifiers: Heart failure type: unspecified Heart failure chronicity: chronic Qualified Code(s): I50.9 - Heart failure, unspecified (10) Hyperlipidemia: Chronically on statin Status: Chronic Qualifiers: Hyperlipidemia type: unspecified Qualified Code(s): E78.5 - Hyperlipidemia, unspecified (11) Hypertension: Chronically on diltiazem and diuretics. Low blood pressures here at presentation Status: Chronic Qualifiers: Hypertension type: unspecified Qualified Code(s): I10 - Essential (primary) hypertension (12) Chronic indwelling Moore catheter: Due to urinary retention and recurrent issues with UTI/hematuria. sees Mala Status: Chronic Additional A&P Information Inpatient admission Additional fluid bolus,continue hydration Continue broad-spectrum antibiotics Blood and urine cultures ordered from the emergency room Check CK level Hold Lasix, metolazone, diclofenac Check uric acid, phosphorus, magnesium Monitor electrolytes and urine output closely If does not have significant improvement in BUN will have to consider possibility of dialysis given significant mental status change although with normal potassium levels hopefully we can avoid this Monitor for evidence of GI bleeding Three-way catheter with continuous bladder irrigation Hold Eliquis Continue Cardizem drip until able to take by mouth medications Repeat CT of the head secondary to asymmetric pupils Serial neuro exams Telemetry monitoring Serial cardiac enzymes Send Covid PCR testing for further clarification Monitor oxygen levels Isolation currently until we are able to discern further Positive Covid test from facility was on January 21 Hold home statin therapy until we are able to verify what current CK level is Hold home vitamins, stool softeners and such secondary to alteration in mental status presently SCDs for DVT prophylaxis Moore is to remain in place, chronic due to urinary retention Supportive care otherwise Need to discuss further with family when available Anticipated Disposition: back to SNF Code Status: Limited code, can do anything except no intubation or mechanical ventilation per ED discussion with daughter Attestations Medical Necessity Statement*: Anticipated stay greater than two midnights in patient who is unresponsive for reasons noted above. At high risk of continued clincial decline up to and including . Coding Level of Care Code Acute Manager [employer] Intelligence for Chg Fwd Diagnoses Acute encephalopathy G93.40 Severe sepsis A41.9; R65.20 Complicated urinary tract infection N39.0 Gross hematuria R31.0 Acute renal failure N17.9 Acute renal failure type: unspecified Atrial fibrillation with rapid ventricular response I48.91 COVID-19 U07.1 Chronic anticoagulation Z79.01 CHF (congestive heart failure) I50.9 Heart failure type: unspecified Heart failure chronicity: chronic Hyperlipidemia E78.5 Hyperlipidemia type: unspecified Hypertension I10 Hypertension type: unspecified Chronic indwelling Moore catheter Z97.8
[2021-02-05 23:19] LABS: Magnesium 2.9 mg/dL (1.7-2.3); Phosphorus 5.3 mg/dL (2.5-4.5); Uric Acid 16.6 mg/dL (3.4-7.0)
[2021-02-05 23:20] LABS: Creatine Phosphokinase 98 U/L (39-308)
[2021-02-05] MEDS: piperacillin-tazobactam 3.375 GM in sodium chloride 0.9% (plus) 50 ML IV (23:51)
[2021-02-06] VITALS (23 sets, daily range): BP systolic 90–123; BP diastolic 52–87; PULSE 82–136; RESP 11–29; TEMP 36.4–36.6; O2SAT 9–100
--- NOTE | 2021-02-06 00:33 | PC.NURSE ---
850cc of bright red urine with large blood clots drained from moore catheter prior to floor transfer
[2021-02-06 00:34] LABS: Lactic Sepsis W/Reflex 1.9 mmol/L (0.5-2.2)
[2021-02-06] MEDS: sodium chloride 0.9% 500 ML 999 ML IV (01:09)
[2021-02-06] MEDS: pantoprazole 40 mg SDV IVP ×2 (01:10→23:01)
[2021-02-06] MEDS: sodium chlor 0.9% + KCl 20 mEq 20 MEQ/1,000 ML BAG 125 MEQ IV ×3 (01:11→23:02)
--- NOTE | 2021-02-06 01:24 | PC.NURSE ---
Admit Note Patient admitted to CSU room 106 from ED via stretcher. Covering service notified. Patient presents with afib with avr and responds only to painful or aggravating stimuli. Patient is non-verbal presently. Orders reviewed & will continue to monitor. Patient and/or sales representative aircraft oriented to environment, equipment, and informed of the following as found in the admission booklet: patient rights & responsibilities, visitor policy, hand and respiratory hygiene practice. Other education includes: continuous bladder irrigation. Patient unable to comprehend instruction due to being confused and as noted above. Patient currently has cardizem drip at 15ml/hr with heart rate 120-130s. 3-way moore and CBI placed per aseptic technique. Patient did not tolerate well. Patient restless larry lnot leave pulse oximetry in place, providing poor reading. Patient chewing on lines and oxymask.
--- NOTE | 2021-02-06 02:31 | PC.NURSE ---
Patient non-verbal. Responds to painful stimuli only. Patient pulling at lines, CBI catheter and chewing on oxymask. Informed Dr Henry. Doctor to place order for 1:1 sitter to prevent removal of lines and catheter.
[2021-02-06 04:56] LABS: Basophils % 0.2 %; Eosinophils % 0.1 %; Hematocrit 49.2 % (42.0-52.0); Lymphocytes # 0.9 10^3/uL (0.8-4.8); Lymphocytes % 5.3 %; Mean Corpuscular HGB Conc 32.5 g/dL (30.0-36.0); Mean Corpuscular Hemoglobin 32.1 pg (28.0-34.0); Mean Corpuscular Volume 98.8 fl (80-94); Mean Platelet Volume 10.8 fL (7.4-10.4); Monocytes # 0.7 10^3/uL (0.2-0.9); Monocytes % 3.7 %; Neutrophils # 15.99 10^3/uL (1.8-7.7); Neutrophils % 90.2 %; Nucleated Red Blood Cells % 0 %; Platelet Count 178 10^3/cmm (130-400); Red Blood Count 4.98 10^6/uL (4.1-5.3); Red Cell Distribution Width 13.8 % (12.1-15.1); White Blood Count 17.7 10^3/uL (4.0-10.0)
[2021-02-06 05:29] LABS: Lactic Sepsis W/Reflex 2.3 mmol/L (0.5-2.2)
[2021-02-06] MEDS: piperacillin-tazobactam 3.375 GM in sodium chloride 0.9% (plus) 50 ML IV ×3 (05:50→23:01)
[2021-02-06 06:27] LABS: INR 2.12 (0.8-1.2)
[2021-02-06 06:28] LABS: Partial Thromboplastin Time 35.1 SECONDS (23.9-36.7)
[2021-02-06 06:29] LABS: Anion Gap 15.3 (5-19); Calcium 8.3 mg/dL (8.5-10.5); Carbon Dioxide 31 mmol/L (22-29); Chloride 105 mmol/L (98-107); Glucose 144 mg/dL (65-115); Magnesium 2.9 mg/dL (1.7-2.3); Osmolality Calculated 339 mOsm/kg (285-295); Phosphorus 4.6 mg/dL (2.5-4.5); Potassium 3.3 mmol/L (3.5-5.1); Sodium 148 mmol/L (136-145); Uric Acid 15.7 mg/dL (3.4-7.0)
[2021-02-06 06:31] LABS: Blood Urea Nitrogen 97 mg/dL (8-23)
--- NOTE | 2021-02-06 06:37 | PC.NURSE ---
Shift Note Frequent safety and comfort rounds continue. Orders and/or nursing care completed as indicated. Patient monitored for response to intervention and treatment(s). Education provided includes CBI. Patient unable to comprehend teaching due to altered mental status. Doctor aware of patient condition. Patient appears comfortable at this time. Patient remains calm and restful. Informed Dr Henry of improved behavior. No 1:1 needed at this time. Will continue to monitor.
[2021-02-06 06:41] LABS: Reflex Lactate Order REFLEX LACTIC ORDERD
[2021-02-06 11:00] LABS: Lactate (Lactic Acid level) 2.2 mmol/L (0.5-2.2)
--- NOTE | 2021-02-06 11:54 | P.PN_ITS ---
Subjective Subjective: Interval history: Confused. Lethargic. Withdraws to pain. Does not like keeping his oxygen mask on. When trying to put it on him tries to bite it. But after falls asleep keeps it on. Vitals/I&O/Wt Last Vital Signs Temp 98 F 02/06/21 03:38 Pulse 95 02/06/21 06:30 Resp 29 H 02/06/21 06:30 BP 95/52 02/06/21 06:30 Pulse Ox 80 L 02/06/21 01:15 02/05/21 02/06/21 02/06/21 22:59 06:59 14:59 Intake Total 115.25 / 2177.00 1630 / 3807.00 50 / 50 Output Total 1000 / 1000 550 / 550 Balance 115.25 / 2177.00 630 / 2807.00 -500 / -500 Weight last 48 hrs Weight 85.275 kg Weight 104.326 kg Physical Exam Const: COMMON NORMALS: no acute distress; negative for patient oriented x3 GENERAL APPEARANCE: lethargic and frail appearing ORIENTATION/CONSCIOUSNESS: Yes confused and Yes lethargic HENMT: COMMON NORMALS: oropharynx normal TEETH & GINGIVA: Yes edentulous Neck/C-Spine: COMMON NORMALS: no JVD Resp: COMMON NORMALS: normal respiratory effort and clear to auscultation bilaterally AUSCULTATION: clear to auscultation bilaterally Cardio: COMMON NORMALS: no JVD, S1 normal heart sound present, S2 normal heart sound present and No murmurs present (Cardio) RHYTHM: abnormal rhythm irregularly irregular HEART SOUNDS: S1 normal heart sound present and S2 normal heart sound present GI: COMMON NORMALS: Normal to inspection, nondistended, normoactive bowel sounds present and Soft to palpation PALPATION: Yes Soft to palpation Extremity: COMMON NORMALS: no joint enlargement and no pedal edema Neuro: COMMON NORMALS: moves all extremities; negative for patient oriented x3 SENSORIUM/ORIENTATION: Yes lethargic Skin: COMMON NORMALS: no rashes or lesions noted GENERAL SKIN EXAM: no rashes or lesions noted Urinary Catheter Management^: Moore: Cath Placed During This Visit: yes, but has since been removed by the nurse Reason for Continuing Indwelling Catheter: Acute Urinary Retention or Obstru ction Urinary Catheter Date of Insertion: 02/06/21 Urinary Catheter Time of Insertion: 01:15 Date Urinary Catheter Removed: 02/06/21 Time Urinary Catheter Discontinued: 01:10 Data : 02/06/21 04:47 02/06/21 06:05 Micro: Microbiology 02/05/21 11:50 Urine Culture - Preliminary Urine Catheterized Gram Negative Rods 02/05/21 13:13 Blood Culture - Preliminary Blood SPECIMEN COLLECTED 02/05/21 13:08 Blood Culture - Preliminary Blood SPECIMEN COLLECTED A&P Assessment and plan (1) Acute encephalopathy: Acute metabolic encephalopathy secondary to urinary tract infection, pneumonia. Continue treatment of underlying conditions and supportive care. As well as azotemia, atrial fibrillation with rapid ventricular response and effects of severe sepsis Status: Acute (2) Severe sepsis: Continue antibiotics. Follow-up cultures. Gram-negative rods growing in urine. Follow-up COVID-19 PCR. Lactic acidosis resolving. Status: Acute (3) Complicated urinary tract infection: In patient with chronic moore Follow-up culture. Gram-negative rods. Continue Zosyn. I do not see history of resistant infection in our records. No obstructive uropathy noted on CT. Thickened urinary bladder wall. Moore was freshly changed on admission. Status: Acute (4) Gross hematuria: Has had recurrent issues with such this year, has a moore and on eliquis chronically, sees [facility] outpatient Hold anticoagulation. CBI. Status: Acute (5) Acute renal failure: Little bit there this morning, creatinine down to 1.8. Continue gentle IV fluid challenge. Baseline Cr around 1.2. Significant azotemia curerntly, home med list with lasix, metolazone, diclofenac topical. No reported GI bleeding. Seems very dry clinically also. Hold diuretic, DC NSAID. No obstruction on CT. Status: Acute Qualifiers: Acute renal failure type: unspecified Qualified Code(s): N17.9 - Acute kidney failure, unspecified (6) Atrial fibrillation with rapid ventricular response: A. fib with RVR. Continues on Cardizem drip at 15mg/h. BP soft. Not tolerating oral medications at this time. Will add scheduled IV metoprolol pushes, if not tolerating may need to transition to amiodarone drip. Status: Acute (7) COVID-19: Positive test at [facility] facility 01/21/2021, negative rapid antigen here 02/05/2021. CT scan with opacties in lungs, reportely hypoxic at time of transfer from SNF to ED but not currently requiring oxygen. PCR test pending. Continue Zosyn, Comycin for possible bacterial pneumonia. SCD. No anticoagulant at this time due to bleeding. Status: Acute (8) Chronic anticoagulation: Usually on eliquis 5 mg bid Status: Chronic (9) CHF (congestive heart failure): Type unknown Status: Acute Qualifiers: Heart failure type: unspecified Heart failure chronicity: chronic Qualified Code(s): I50.9 - Heart failure, unspecified (10) Hyperlipidemia: Chronically on statin Status: Chronic Qualifiers: Hyperlipidemia type: unspecified Qualified Code(s): E78.5 - Hyperlipidemia, unspecified (11) Hypertension: Chronically on diltiazem and diuretics. Low blood pressures here at presentation Status: Chronic Qualifiers: Hypertension type: unspecified Qualified Code(s): I10 - Essential (primary) hypertension (12) Chronic indwelling Moore catheter: Due to urinary retention and recurrent issues with UTI/hematuria. seejacobo Medeiros Status: Chronic Additional A&P Information Discussed with his daughter who has financial power of sweet potato disintegrator. She states no one has healthcare power of sweet potato disintegrator. She is the oldest daughter. She and her brother have been taking care of any documentation needed for their father. Attestations Medical Necessity Statement*: Continue admission for assessment of management of severe sepsis, acute encephalopathy, A. fib with RVR, hematuria, MANUEL and additional complicating conditions as above. Coding Level of Care Code Acute Body And Fender Mechanic for [facility] Diagnoses Acute encephalopathy G93.40 Severe sepsis A41.9; R65.20 Complicated urinary tract infection N39.0 Gross hematuria R31.0 Acute renal failure N17.9 Acute renal failure type: unspecified Atrial fibrillation with rapid ventricular response I48.91 COVID-19 U07.1 Chronic anticoagulation Z79.01 CHF (congestive heart failure) I50.9 Heart failure type: unspecified Heart failure chronicity: chronic Hyperlipidemia E78.5 Hyperlipidemia type: unspecified Hypertension I10 Hypertension type: unspecified Chronic indwelling Moore catheter Z97.8
[2021-02-06] MEDS: metoprolol tartrate 1 mg/1 mL SDV 5 mL 2.5 MG IVP ×4 (12:29→23:19)
--- NOTE | 2021-02-06 13:25 | PC.NURSE ---
patient pulling at lines and will not leave o2 in place Dr hernandez on unit for assessment and plan of care verbal instructions obtained to start 1:1 sitter
[2021-02-06 16:19] LABS: Coronavirus Test Green County Detected
--- NOTE | 2021-02-06 19:50 | PC.NURSE ---
Shift Note Frequent safety and comfort rounds continue. Orders and/or nursing care completed as indicated. Patient monitored for response to intervention and treatment(s). Education provided includes medication telemetry. Patient and/or business representative unable to comprehend altered mental status. Will continue to monitor.
[2021-02-06] MEDS: haloperidol inj 5 mg/mL INJ 1 mL 1 MG IM ×2 (19:59→23:19)
--- NOTE | 2021-02-06 23:47 | USCV_ITS ---
Len Burgess Age: 85 Gender: M : 1935 Exam Date: 02/06/2021 06:22 Ordering Phys: Kimberli Henry MD Technologist: Charlette Jason [place] [facility] [place]: EF ONLY, HX CHF BP: 97 / 61 HR: 98 Rhythm: Other Technical Quality: Technically difficult study MEASUREMENTS (Male / Female) Normal Values 2D ECHO LV Diastolic Diameter PLAX 3.2 cm 4.2 - 5.9 / 3.9 - 5.3 cm LV Systolic Diameter PLAX 2.8 cm IVS Diastolic Thickness 1.6 cm 0.6 - 1.0 / 0.6 - 0.9 cm IVS Systolic Thickness 1.7 cm LVPW Diastolic Thickness 2.3 cm 0.6 - 1.0 / 0.6 - 0.9 cm LVPW Systolic Thickness 2.2 cm LVOT Diameter 2.0 cm LV Ejection Fraction 2D Teich 29.9 % LV Ejection Fraction MOD 2C 37.4 % LV Ejection Fraction 2C AL 34.5 % LA Diameter 3.6 cm LA Width 2.8 cm LA Height 4.0 cm RA Width 2.5 cm RA Height 3.8 cm Aorta at Sinotubular Diameter 3.0 cm M-MODE Aortic Annulus Diameter 3.3 cm LA Ao Ratio MM 1.3 MV E Point Septal Separation 1.2 cm DOPPLER Right Atrial Pressure 3.0 mmHg FINDINGS Left Ventricle Normal left ventricular cavity size. Severely decreased left ventricular systolic function. Global left ventricular hypokinesis. Left ventricular ejection fraction is estimated at 30 %. In the presence of atrial fibrillation diastolic function cannot be assessed accurately. Right Ventricle Right Atrium Left Atrium Mitral Valve Aortic Valve Tricuspid Valve Pulmonic Valve Pericardium Aorta CONCLUSIONS Limited echo to assess LV function 1-Normal left ventricular cavity size. Severely decreased left ventricular systolic function. Global left ventricular hypokinesis. Left ventricular ejection fraction is estimated at 30 %. In the presence of atrial fibrillation diastolic function cannot be assessed accurately. 2-There is no pericardial effusion. 3-Cannot compare with the prior echo due to limited and difficult study. Ben Warner MD (Electronically Signed) Final Date: 06 February 2021 21:28 S
[2021-02-07] VITALS (11 sets, daily range): BP systolic 106–120; BP diastolic 61–79; PULSE 91–116; RESP 15–29; TEMP 36.2–36.4; O2SAT 84–94
--- NOTE | 2021-02-07 00:05 | PC.NURSE ---
Patient is no longer unresponsive. Becoming very combative. He keeps telling me I am killing him and he wants out of here. Will not leave telemetry in place and still has Cardizem drip running at 15ml/hr. Attempting to remove 3way catheter. (Urine is clear presently) Yelling, throwing punches, grabbing and attempting to bite staff. 1:1 sitter at bedside. Haldol 1mg IM given x2 doses per Dr Hobbs ordered. 1st dose worked for about 1 1/2 hours. 2nd dose not working. Informed Dr Henry. Waiting for response. Will continue with redirection efforts and continue to monitor.
[2021-02-07] MEDS: morphine 4 mg/mL SDV 1 mL 1 MG IVP (00:32)
--- NOTE | 2021-02-07 00:37 | PC.NURSE ---
Spoke with Dr Henry via telephone. Discussed patient behavior as previously noted. Dr Henry placed onetime order for Morphine 1mg IV which has been given at this time. Will continue to monitor.
--- NOTE | 2021-02-07 02:38 | PC.NURSE ---
Patient current heart rate 70s to mid 80s. Decreased Cardizem drip to 10ml/hr. Patient appears to be resting more comfortable. Moaning occasionally. CBI continues with clear, pale yellow urine observed.
[2021-02-07] MEDS: metoprolol tartrate 1 mg/1 mL SDV 5 mL 2.5 MG IVP ×5 (03:37→21:22)
--- NOTE | 2021-02-07 03:44 | PC.NURSE ---
Patient heart rate continues to decrease. Sustaining low 60s to low 80s. No distress observed. Patient resting comfortably. Decreased Cardizem drip to 5ml/hr. Will continue to assess.
[2021-02-07] MEDS: LORazepam 2 mg/mL INJ 1 mL 0.5 MG IVP ×2 (04:30→17:44)
[2021-02-07] MEDS: piperacillin-tazobactam 3.375 GM in sodium chloride 0.9% (plus) 50 ML IV ×2 (05:41→15:32)
--- NOTE | 2021-02-07 06:38 | PC.NURSE ---
Shift Note Frequent safety and comfort rounds continue. Orders and/or nursing care completed as indicated. Patient monitored for response to intervention and treatment(s). Education provided includes Haldol and Ativan. Patient remains confused and combative at times. See previous notes. Dr Henry informed of patient's continued confusion and behavior issues. Patient currently calm but moaning. Leaving lines and 3-moore in place presently. Will continue to monitor.
--- NOTE | 2021-02-07 10:28 | PC.CHAP ---
Pastoral Care Encounter/Spiritual Assessment Type of Contact [] Declined personal property appraiser visit [] Patient/Family/Request visit [] Outpatient visit [] Follow-up visit [] Physician referral [] Code/Alert [x] Routine visit [] Staff referral [] Actively dying [] Patient sleeping [] Family support [] [] Out of room [] Palliative care [x] [x] Receiving care in room [] Pre-surgical visit [] Trauma [x] Long length of stay [] ICU visit [] Other: Relational/Emotional Strength [] Patient feels connected with others/family/visitors/staff [] Distress [] Loneliness/isolation [] Abandonment Spirituality of Patient [] Person of Brittany [] Attends Scientology of their [place] [] Believes in Prayer [] Reads Bible or Yazidism materials [] There are Spiritual issues to be addressed Solutions Specialist Interventions [] Prayer [] Active listening [] Non-anxious presence [] Spiritual/emotional support [] Crisis/trauma care [] Spiritual counseling [] Bereavement support [] Provided bereavement packet [] Provided Bible/devotional materials [] Provided toy/stuffed animal, coloring book to patient or family member [] Provided Communion [] Anointing/[place] [] Salvation [] Completed spiritual assessment [] Other: Impact on Illness or Injury [] Angry [] Fearful [] Anxious [] Often cries [] Exhaustion [] Unable to work [] Unable to attend islam [] Unable to walk/stand [] Unable to read [] Unable to drive [] Unable to eat/drink [] Unable to sleep [] Unable to be with family [] Patient intubated [] Other: Summary with a nurse not able to communicate Time spent with patient 5 mins
[2021-02-07 11:31] LABS: Basophils # 0.1 10^3/uL (0.0-0.1); Basophils % 0.3 %; Eosinophils # 0.1 10^3/uL (0.0-0.8); Eosinophils % 0.3 %; Hemoglobin 15.7 g/dL (11.7-16.6); Lymphocytes # 1.4 10^3/uL (0.8-4.8); Lymphocytes % 7.1 %; Mean Corpuscular HGB Conc 30.2 g/dL (30.0-36.0); Mean Corpuscular Hemoglobin 32.3 pg (28.0-34.0); Monocytes # 0.9 10^3/uL (0.2-0.9); Monocytes % 4.2 %; Neutrophils # 17.65 10^3/uL (1.8-7.7); Neutrophils % 87.4 %; Nucleated Red Blood Cells % 0.1 %; Platelet Count 175 10^3/cmm (130-400); Red Blood Count 4.86 10^6/uL (4.1-5.3); Red Cell Distribution Width 14.2 % (12.1-15.1); White Blood Count 20.2 10^3/uL (4.0-10.0)
[2021-02-07 11:48] LABS: Anion Gap 12.1 (5-19); Blood Urea Nitrogen 61 mg/dL (8-23); Calcium 8.1 mg/dL (8.5-10.5); Carbon Dioxide 27 mmol/L (22-29); Chloride 116 mmol/L (98-107); Glucose 124 mg/dL (65-115); Magnesium 2.8 mg/dL (1.7-2.3); Osmolality Calculated 333 mOsm/kg (285-295); Phosphorus 2.2 mg/dL (2.5-4.5); Potassium 3.1 mmol/L (3.5-5.1); Sodium 152 mmol/L (136-145)
--- NOTE | 2021-02-07 12:13 | PM.PN ---
Subjective Subjective: Interval history: Was very restless overnight, currently calm her. Sleeping. Vitals/I&O/Wt Last Vital Signs Temp 97.4 F L 02/07/21 11:25 Pulse 116 H 02/07/21 11:25 Resp 15 02/07/21 11:25 BP 112/79 02/07/21 11:25 Pulse Ox 94 02/07/21 11:25 02/06/21 02/07/21 02/07/21 22:59 06:59 14:59 Intake Total 175 / 1350 1141 / 2491 50 / 50 Output Total 1700 / 3025 500 / 3525 Balance -1525 / -1675 641 / -1034 50 / 50 Weight last 48 hrs Weight 85.139 kg Weight 85.275 kg Physical Exam Narrative: EXAM NARRATIVE: One-to-one sitter at bedside. Const: COMMON NORMALS: no acute distress GENERAL APPEARANCE: lethargic and frail appearing ORIENTATION/CONSCIOUSNESS: Yes confused and Yes lethargic OTHER: Maintaining oxygen mask on. HENMT: COMMON NORMALS: oropharynx normal TEETH & GINGIVA: Yes edentulous Neck/C-Spine: COMMON NORMALS: no JVD Resp: COMMON NORMALS: normal respiratory effort and clear to auscultation bilaterally AUSCULTATION: clear to auscultation bilaterally and diminished lung sounds bilateral in the lower lung mensah Cardio: COMMON NORMALS: no JVD, S1 normal heart sound present, S2 normal heart sound present and No murmurs present (Cardio) RHYTHM: abnormal rhythm irregularly irregular HEART SOUNDS: S1 normal heart sound present and S2 normal heart sound present GI: COMMON NORMALS: Normal to inspection, nondistended, normoactive bowel sounds present and Soft to palpation PALPATION: Yes Soft to palpation Extremity: COMMON NORMALS: no joint enlargement and no pedal edema Neuro: COMMON NORMALS: moves all extremities SENSORIUM/ORIENTATION: Yes lethargic Skin: COMMON NORMALS: no rashes or lesions noted GENERAL SKIN EXAM: no rashes or lesions noted Urinary Catheter Management^: Moore: Cath Placed During This Visit: yes, but has since been removed by the nurse Reason for Continuing Indwelling Catheter: Acute Urinary Retention or Obstruction Urinary Catheter Date of Insertion: 02/06/21 Urinary Catheter Time of Insertion: 01:15 Date Urinary Catheter Removed: 02/06/21 Time Urinary Catheter Discontinued: 01:10 Data : 02/07/21 11:25 02/07/21 11:25 Micro: Microbiology 02/05/21 15:15 Urine Culture - Final Urine,Clean Catch Morganella caroleeii 02/05/21 11:50 Urine Culture - Final Urine Catheterized Morganella morganii 02/05/21 13:08 Blood Culture - Preliminary Blood NEGATIVE TO DATE 02/05/21 13:13 Blood Culture - Preliminary Blood NEGATIVE TO DATE A&P Assessment and plan (1) Acute encephalopathy: Was quite restless overnight, last night received Haldol, this morning received Ativan. Currently resting. Acute metabolic encephalopathy secondary to urinary tract infection, pneumonia. Continue treatment of underlying conditions and supportive care. As well as azotemia, atrial fibrillation with rapid ventricular response and effects of severe sepsis Discussed with his daughter. She understands that oral prognosis is not good. She has been suspecting that he has been having dementia recently, and we discussed that perhaps that is why he is having worse encephalopathy which may be superimposed on more chronic cognitive issues. We discussed concerns regarding persistent cephalopathy, inability to take oral intake or medications. Discussed risks of aspiration which are persistent. Discussed ongoing physical deconditioning while not safety aware, unable to self-care or participate with therapy. Risk of continued decline and possibly inability to recover from this acute illness and hospitalization. She is getting in touch additionally with his siblings to keep them updated. Status: Acute (2) Severe sepsis: Sepsis secondary to multiple conditions including UTI, with Morganella morgagni growing in urine, COVID-19 pneumonia, superimposed bacterial pneumonia. Continue antibiotics. Follow-up blood cultures. Status: Acute (3) Complicated urinary tract infection: Complicated urinary tract infection In patient with chronic moore. With acute metabolic encephalopathy, delirium. Morganella morganii more than 100,000 and urine culture. Sensitive to Zosyn. Continue Zosyn. No obstructive uropathy noted on CT. Thickened urinary bladder wall. Moore was freshly changed on admission. Status: Acute (4) Gross hematuria: Improved. Has had recurrent issues with such this year, has a moore and on eliquis chronically, sees [facility] outpatient Hold anticoagulation. Status: Acute (5) Acute renal failure: Little bit there this morning, creatinine down to 1.8. Continue gentle IV fluid challenge. Baseline Cr around 1.2. Significant azotemia curerntly, home med list with lasix, metolazone, diclofenac topical. No reported GI bleeding. Seems very dry clinically also. Hold diuretic, DC NSAID. No obstruction on CT. Status: Acute Qualifiers: Acute renal failure type: unspecified Qualified Code(s): N17.9 - Acute kidney failure, unspecified (6) Atrial fibrillation with rapid ventricular response: Weaning down on a Cardizem drip. Currently down to 5 mg/h. Continue IV metoprolol pushes. Currently unable to take oral medications. Not on anticoagulation due to hematuria. Hematuria currently with improvement, will trial prophylactic low dose heparin. Status: Acute (7) COVID-19: COVID-19 pneumonia. As he is requiring oxygen we will add Decadron. Hold off Remdesivir due to poor renal function. CT scan with opacties in lungs. PCR test pending. Continue Zosyn, vancomycin for possible bacterial pneumonia. SCD. No anticoagulant at this time due to bleeding. Status: Acute (8) Chronic anticoagulation: Usually on eliquis 5 mg bid Trial of low-dose prophylactic heparin. Status: Chronic (9) CHF (congestive heart failure): Type unknown Status: Acute Qualifiers: Heart failure chronicity: chronic Heart failure type: unspecified Qualified Code(s): I50.9 - Heart failure, unspecified (10) Hyperlipidemia: Chronically on statin Status: Chronic Qualifiers: Hyperlipidemia type: unspecified Qualified Code(s): E78.5 - Hyperlipidemia, unspecified (11) Hypertension: Chronically on diltiazem and diuretics. Low blood pressures here at presentation Status: Chronic Qualifiers: Hypertension type: unspecified Qualified Code(s): I10 - Essential (primary) hypertension (12) Chronic indwelling Moore catheter: Due to urinary retention and recurrent issues with UTI/hematuria. seejacobo Medeiros Status: Chronic Additional A&P Information Discussed with his daughter. She has financial power of prosecuting attorney. She states no one has healthcare power of prosecuting attorney. She is the oldest daughter. She and her brother have been taking care of any documentation needed for their father. Attestations Medical Necessity Statement*: Continue admission for assessment of management of acute encephalopathy with delirium secondary to multiple infections, sepsis, UTI, pneumonia, COVID-19. Optimization of A. fib with RVR with inability to take oral medications. Coding Level of Care Code Acute Director Non Profit for g Fwd Exam Comprehensive Diagnoses Acute encephalopathy G93.40 Severe sepsis A41.9; R65.20 Complicated urinary tract infection N39.0 Gross hematuria R31.0 Acute renal failure N17.9 Acute renal failure type: unspecified Atrial fibrillation with rapid ventricular response I48.91 COVID-19 U07.1 Chronic anticoagulation Z79.01 CHF (congestive heart failure) I50.9 Heart failure chronicity: chronic Heart failure type: unspecified Hyperlipidemia E78.5 Hyperlipidemia type: unspecified Hypertension I10 Hypertension type: unspecified Chronic indwelling Moore catheter Z97.8
[2021-02-07] MEDS: sodium chlor 0.45% +KCl 20 mEq 20 MEQ/1,000 ML BAG 75 MEQ IV (13:48)
[2021-02-07] MEDS: heparin 5,000 unit/mL INJ 1 mL 5000 UNIT SUBCUT (13:49)
[2021-02-07] MEDS: vancomycin 1,000 MG in sodium chloride 0.9% 250 ML 250 MG IV (15:31)
[2021-02-07] MEDS: dexamethasone 10 mg/mL INJ 6 MG IVP (15:40)
--- NOTE | 2021-02-07 16:07 | XRR_ITS ---
PROCEDURE INFORMATION: Exam: XR Chest Exam date and time: 02/07/2021 4:07 PM Age: 85 years old Clinical indication: Dyspnea; Additional info: Desaturation of oxygen TECHNIQUE: Imaging protocol: XR of the chest. Views: 1 view. COMPARISON: CT chest abd pel wo con 02/05/2021 1:39 PM FINDINGS: Lungs: See Heart/Mediastinum finding. Pleural spaces: Unremarkable. No pleural effusion. No pneumothorax. Heart/Mediastinum: Mild cardiomegaly and central pulmonary vascular congestion. Curvilinear opacities noted in the left lung base and right lung apex. Bones/joints: Left shoulder hemiarthroplasty. DJD of the right shoulder. XR/XR chest 1V portable [id number] IMPRESSION: 1. Curvilinear opacities in the left lung base and right lung apex, may reflect atelectasis with developing consolidations/infection are not excluded. 2. Mild cardiomegaly and central pulmonary vascular congestion.
--- NOTE | 2021-02-07 19:34 | PC.NURSE ---
Shift Note Frequent safety and comfort rounds continue. Orders and/or nursing care completed as indicated. Patient monitored for response to intervention and treatment(s). Education provided includes[]. Patient and/or business banking representative [ResponseToTeaching]. Will continue to monitor.
--- NOTE | 2021-02-07 19:35 | PC.NURSE ---
Shift Note Frequent safety and comfort rounds continue. Orders and/or nursing care completed as indicated. Patient monitored for response to intervention and treatment(s). Education provided includes keeping his oxygen and telemetry on. Patient remains lethargic, unable to follow-commands. Had 1 BM today, madiha-care and linen changed. Updated daughter on pt's condition and plans and treatment of care. Dr. Hobbs informed on pt's moaning and groaning and oxygenation status. Will continue to monitor.
--- NOTE | 2021-02-07 21:08 | PC.NURSE ---
Patient heart rate is 110s to 140s. Increased Cardizem drip to 15ml/hr. Patient continues to moan and pull at telemetry. Covered 3-way catheter out of reach of patient. Patient redirected but remains confused.
[2021-02-08] VITALS (10 sets, daily range): BP systolic 87–116; BP diastolic 72–78; PULSE 102–117; RESP 16–30; TEMP 36.6; O2SAT 91–96
[2021-02-08] MEDS: heparin 5,000 unit/mL INJ 1 mL 5000 UNIT SUBCUT (00:01)
[2021-02-08] MEDS: metoprolol tartrate 1 mg/1 mL SDV 5 mL 2.5 MG IVP ×3 (00:02→08:09)
[2021-02-08] MEDS: pantoprazole 40 mg SDV IVP (00:02)
[2021-02-08] MEDS: piperacillin-tazobactam 3.375 GM in sodium chloride 0.9% (plus) 50 ML IV ×2 (00:03→05:50)
[2021-02-08] MEDS: sodium chlor 0.45% +KCl 20 mEq 20 MEQ/1,000 ML BAG 75 MEQ IV (03:37)
--- NOTE | 2021-02-08 04:55 | PC.NURSE ---
Heart rate increased to 110s to 130s. Increased cardizem drip as documented. Patient becoming increasingly restless. Removing telemetry wires. Provided cold damp swabs for oral care. Redirected patient. Covered patient for warmth.
[2021-02-08] MEDS: LORazepam 2 mg/mL INJ 1 mL 0.5 MG IVP ×3 (05:49→21:23)
--- NOTE | 2021-02-08 05:56 | PC.NURSE ---
Shift Note Frequent safety and comfort rounds continue. Orders and/or nursing care completed as indicated. Patient monitored for response to intervention and treatment(s). Education provided includes Ativan and 1:1 sitter. Patient unable to comprehend due to continued AMS. Patient pulled at telemetry and moaned all night. No verbal response only mumbling. CBI continues with pale yellow/pink fluid removed. Will continue to monitor.
[2021-02-08 06:19] LABS: Basophils % 0.1 %; Hematocrit 46.2 % (42.0-52.0); Hemoglobin 14.4 g/dL (11.7-16.6); Lymphocytes # 0.7 10^3/uL (0.8-4.8); Lymphocytes % 4.5 %; Mean Corpuscular HGB Conc 31.2 g/dL (30.0-36.0); Mean Corpuscular Hemoglobin 31.9 pg (28.0-34.0); Mean Corpuscular Volume 102.2 fl (80-94); Mean Platelet Volume 11.3 fL (7.4-10.4); Monocytes # 0.3 10^3/uL (0.2-0.9); Monocytes % 1.7 %; Neutrophils # 14.35 10^3/uL (1.8-7.7); Neutrophils % 92.9 %; Nucleated Red Blood Cells % 0 %; Platelet Count 186 10^3/cmm (130-400); Red Blood Count 4.52 10^6/uL (4.1-5.3); Red Cell Distribution Width 14.3 % (12.1-15.1); White Blood Count 15.5 10^3/uL (4.0-10.0)
[2021-02-08 06:46] LABS: Anion Gap 16.7 (5-19); Blood Urea Nitrogen 56 mg/dL (8-23); Calcium 8.6 mg/dL (8.5-10.5); Carbon Dioxide 28 mmol/L (22-29); Chloride 118 mmol/L (98-107); Glucose 134 mg/dL (65-115); Magnesium 2.7 mg/dL (1.7-2.3); Osmolality Calculated 345 mOsm/kg (285-295); Phosphorus 2.7 mg/dL (2.5-4.5); Potassium 3.7 mmol/L (3.5-5.1); Sodium 159 mmol/L (136-145)
--- NOTE | 2021-02-08 09:26 | PHA.FALL ---
A Pharmacy Consult Was Conducted For Len Burgess Due To: Padilla Fall Scale Risk Level: High Fall Risk On 02/08/21 08:00 And A Medication Fall Risk Score Greater Than 10. The Recommendations Are As Follows: High Risk Medications: Haldol inj: currently used prn and at a low dose Lorazepam: also prn and at a low dose as well Metoprolol inj: currently scheduled but maybe needed to maintain HR.... might look at possibility of using PRN if HR tolerates! Moderate risk: Diltiazem: needed to maintain HR Heparin does put pt at a higher risk of a bleed if a fall were to occur. Continue with current regimen, monitor pt for falls and appropriate fall risk items in place! Thanks, Shin Ojeda Pharm.D.
[2021-02-08] MEDS: digoxin 250 mcg/ml INJ 2 mL IVP (09:52)
[2021-02-08] MEDS: dextrose 5% + KCl 20 mEq 20 MEQ/1,000 ML BAG 75 MEQ IV (09:53)
--- NOTE | 2021-02-08 10:39 | PC.SOCIAL ---
IMM update IMM updated with daughter. Verbalized an understanding. Initialled, dated, timed, and placed in chart.
--- NOTE | 2021-02-08 12:29 | P.PN_ITS ---
Subjective Subjective: Interval history: Despite treatment his mental status is not improving, he remains confused, pulling off his telemetry wires, pulled out his IV today. Vitals/I&O/Wt Last Vital Signs Temp 97.8 F 02/08/21 04:23 Pulse 115 H 02/08/21 08:00 Resp 21 H 02/08/21 08:00 BP 116/72 02/08/21 08:00 Pulse Ox 91 02/08/21 08:00 02/07/21 02/08/21 02/08/21 22:59 06:59 14:59 Intake Total 575.833 / 4863.743 1344.000 / 2702.833 1000 / 1000 Output Total 350 / 350 Balance 575.833 / 1559.833 793.000 / 2352.833 1000 / 1000 Weight last 48 hrs Weight 85.684 kg Weight 85.139 kg Physical Exam Narrative: EXAM NARRATIVE: One-to-one sitter at bedside. Const: COMMON NORMALS: no acute distress GENERAL APPEARANCE: lethargic and frail appearing ORIENTATION/CONSCIOUSNESS: Yes confused and Yes lethargic OTHER: Grabbing onto and pulling things on anything attached to his person. HENMT: COMMON NORMALS: oropharynx normal TEETH & GINGIVA: Yes edentulous Neck/C-Spine: COMMON NORMALS: no JVD Resp: COMMON NORMALS: normal respiratory effort and clear to auscultation bilaterally AUSCULTATION: clear to auscultation bilaterally Cardio: COMMON NORMALS: no JVD, S1 normal heart sound present, S2 normal heart sound present and No murmurs present (Cardio) RHYTHM: abnormal rhythm irregularly irregular HEART SOUNDS: S1 normal heart sound present and S2 normal heart sound present GI: COMMON NORMALS: Normal to inspection, nondistended, normoactive bowel sounds present and Soft to palpation PALPATION: Yes Soft to palpation Extremity: COMMON NORMALS: no joint enlargement and no pedal edema Neuro: COMMON NORMALS: moves all extremities SENSORIUM/ORIENTATION: Yes lethargic Skin: COMMON NORMALS: no rashes or lesions noted GENERAL SKIN EXAM: no rashes or lesions noted Urinary Catheter Management^: Moore: Cath Placed During This Visit: yes, but has since been removed by the nurse Reason for Continuing Indwelling Catheter: Acute Urinary Retention or Obstruction Urinary Catheter Date of Insertion: 02/06/21 Urinary Catheter Time of Insertion: 01:15 Date Urinary Catheter Removed: 02/06/21 Time Urinary Catheter Discontinued: 01:10 Data : 02/08/21 05:40 02/08/21 05:40 Micro: Microbiology 02/05/21 15:15 Urine Culture - Final Urine,Clean Catch Morganella morganii A&P Assessment and plan (1) Acute encephalopathy: Not cooperating with treatments, probably of telemetry wires, pulled out his IV. Discussed with his daughter. Despite good coverage for UTI, pneumonia, even coverage for aspiration pneumonia, with concern for recurrent/persistent aspiration, as well as superimposed COVID-19 infection, despite improvement in renal function, overall improvement in heart rate, his encephalopathy and delirium are not improving, likely also superimposed on chronic dementia. Per discussion with nursing staff at the custodial he hollers out, is oriented x1. Discussed with her his IV fluids were adjusted due to hypernatremia. Discussing with family with regards to how aggressive they would like us to be, with consideration of continuing further aggressive measures, as opposed to switch to comfort care. Further discussion to take place, daughter will discuss also with her brother and we will revisit with them later this afternoon. His overall prognosis is quite poor given mental status is not recovering, he is not protecting his airway, not allowing for treatments to progress effectively, not safety aware, and unable to participate with any therapy. Status: Acute (2) Severe sepsis: Sepsis secondary to multiple conditions including UTI, with Morganella morgagni growing in urine, COVID-19 pneumonia, superimposed bacterial pneumonia. Suspected recurrent aspiration. Continue antibiotics. Follow-up blood cultures. So far negative. Status: Acute (3) Complicated urinary tract infection: Complicated urinary tract infection In patient with chronic moore. With acute metabolic encephalopathy, delirium. Morganella morganii more than 100,000 and urine culture. Sensitive to Zosyn. Continue Zosyn. No obstructive uropathy noted on CT. Thickened urinary bladder wall. Moore was freshly changed on admission. Status: Acute (4) Gross hematuria: Resolved. DC CBI. Anticoagulation on hold. So far tolerating low-dose prophylactic heparin. Has had recurrent issues with such this year, has a moore and on eliquis chronically, sees [facility] outpatient Status: Acute (5) Acute renal failure: Improving. Creatinine down to 1.3. As a team improving. Baseline Cr around 1.2. S Hold lasix, metolazone, diclofenac topical. No reported GI bleeding. No obstruction on CT. Status: Acute Qualifiers: Acute renal failure type: unspecified Qualified Code(s): N17.9 - Acute kidney failure, unspecified (6) Atrial fibrillation with rapid ventricular response: Unfortunately very difficult to manage given he continues to pull off telemetry wires. Given dose of digoxin this morning. Attempt to wean off Cardizem. If still tachycardic consider amiodarone drip given soft blood pressures, poor tolerance of Cardizem drip. Also small improvement with IV beta-kaylan. Tolerating trial prophylactic low dose heparin. Status: Acute (7) COVID-19: COVID-19 pneumonia. As he is requiring oxygen we will add Decadron. Hold off Remdesivir due to poor renal function. CT scan with opacties in lungs. PCR test pending. Continue Zosyn, vancomycin for possible bacterial pneumonia. SCD. No anticoagulant at this time due to bleeding. Status: Acute (8) Chronic anticoagulation: Usually on eliquis 5 mg bid Trial of low-dose prophylactic heparin. Status: Chronic (9) CHF (congestive heart failure): Noted cardiomyopathy with low EF on echo as below. Status: Acute Qualifiers: Heart failure type: unspecified Heart failure chronicity: chronic Qualified Code(s): I50.9 - Heart failure, unspecified (10) Hyperlipidemia: Chronically on statin Status: Chronic Qualifiers: Hyperlipidemia type: unspecified Qualified Code(s): E78.5 - Hyperlipidemia, unspecified (11) Hypertension: Chronically on diltiazem and diuretics. Low blood pressures here at presentation Status: Chronic Qualifiers: Hypertension type: unspecified Qualified Code(s): I10 - Essential (primary) hypertension (12) Chronic indwelling Moore catheter: Due to urinary retention and recurrent issues with UTI/hematuria. sees Medeiros Status: Chronic Additional A&P Information Cardiomyopathy: Ejection fraction noted 30%. Severely decreased left ventricular systolic function. Global left ventricular hypokinesis. Prior echo only in 2016 with normal ejection fraction then. Moderate MVR. Daughter has financial power of criminal defense attorney. She states no one has healthcare power of criminal defense attorney. She is the oldest daughter. She and her brother have been taking care of any documentation needed for their father. Attestations Medical Necessity Statement*: Continue admission for assessment management not ongoing encephalopathy superimposed on dementia, with multiple underlying infections, pneumonia, with aspiration pneumonia, COVID-19 pneumonia, UTI and gentleman with noted systolic cardiomyopathy, EF 30%, with history of valvular heart abnormality, with currently A. fib with RVR. Coding Level of Care Code Acute Slabbing Machine Operator for Chg Fwd Diagnoses Acute encephalopathy G93.40 Severe sepsis A41.9; R65.20 Complicated urinary tract infection N39.0 Gross hematuria R31.0 Acute renal failure N17.9 Acute renal failure type: unspecified Atrial fibrillation with rapid ventricular response I48.91 COVID-19 U07.1 Chronic anticoagulation Z79.01 CHF (congestive heart failure) I50.9 Heart failure type: unspecified Heart failure chronicity: chronic Hyperlipidemia E78.5 Hyperlipidemia type: unspecified Hypertension I10 Hypertension type: unspecified Chronic indwelling Moore catheter Z97.8
--- NOTE | 2021-02-08 13:00 | PC.NURSE ---
urine is clear pale yellow.dr hernandez ordered to dc cbi
[2021-02-08] MEDS: morphine 4 mg/mL SDV 1 mL 2 MG IVP ×3 (15:11→22:21)
--- NOTE | 2021-02-08 16:05 | PC.NURSE ---
1400:pt now comfort care per dr hernandez
--- NOTE | 2021-02-08 19:42 | PC.NURSE ---
Shift Note Frequent safety and comfort rounds continue. Orders and/or nursing care completed as indicated. Patient monitored for response to intervention and treatment(s). Education provided includes[updating family to pt's current status]. Patient and/or marketing development representative verb understanding of instruction]. Will continue to monitor.
[2021-02-09] MEDS: LORazepam 2 mg/mL INJ 1 mL 0.5 MG IVP ×3 (00:03→14:28)
[2021-02-09 02:16] VITALS: RESP 18
[2021-02-09] MEDS: morphine 4 mg/mL SDV 1 mL 2 MG IVP ×3 (02:16→11:38)
[2021-02-09 04:00] VITALS: PULSE 124; RESP 21; O2SAT 96
[2021-02-09 06:00] VITALS: PULSE 124
[2021-02-09 07:54] VITALS: BP 95/77; PULSE 122; RESP 27; TEMP 36.4; O2SAT 92
[2021-02-09 07:58] VITALS: RESP 24; O2SAT 91
--- NOTE | 2021-02-09 10:00 | PC.NURSE ---
Updated Daughter of patient's condition and will let her know when the patient is being transferred to SNF.
--- NOTE | 2021-02-09 11:08 | PM.DCS ---
Discharge Providers Date of Admission: 02/05/21 23:04 Date of Discharge: February 09, 2021 Attending Provider at Admission: Kimberli Henry MD Attending Provider at Discharge: Floyd Hobbs Primary Care Provider: Manish Pimentle Diagnoses at Discharge Discharge Diagnosis (1) Acute encephalopathy: Status: Acute (2) Severe sepsis: Status: Acute (3) Complicated urinary tract infection: Status: Acute (4) Gross hematuria: Status: Acute (5) Acute renal failure: Status: Acute Qualifiers: Acute renal failure type: unspecified Qualified Code(s): N17.9 - Acute kidney failure, unspecified (6) Atrial fibrillation with rapid ventricular response: Status: Acute (7) COVID-19: Status: Acute Permanent problem details: Positive test at [facility] facility 01/21/2021 Negative rapid antigen here 02/05/2021 (8) Chronic anticoagulation: Status: Chronic Permanent problem details: With Eliquis, for atrial fibrillation (9) CHF (congestive heart failure): Status: Acute Qualifiers: Heart failure type: unspecified Heart failure chronicity: chronic Qualified Code(s): I50.9 - Heart failure, unspecified (10) Hyperlipidemia: Status: Chronic Qualifiers: Hyperlipidemia type: unspecified Qualified Code(s): E78.5 - Hyperlipidemia, unspecified (11) Hypertension: Status: Chronic Qualifiers: Hypertension type: unspecified Qualified Code(s): I10 - Essential (primary) hypertension (12) Chronic indwelling Mckeon catheter: Status: Chronic Reason for Visit Reason for Visit: BLOOD IN URINE, ALOC Hospital Course Hospital Course 85-year-old gentleman with history of A. fib, CHF, HLD, HTN, urinary retention, abdominal aortic aneurysm, recently declining functional status, residential resident, chronic Mckeon catheter, was admitted for assessment due to altered mental status, at baseline able to communicate, but hollering out, with limited orientation, but awake and alert, worse on presentation noted obtunded, confused, not answering questions, following commands. Noted desaturating down into the 70s at the residential. Soft blood pressures, systolic into the 90s. Noted to be in atrial fibrillation with RVR at presentation. Presentation with noted gross hematuria while on chronic anticoagulation, urinary tract infection, with also acute kidney injury. Requiring oxygen support. Started on empiric antibiotic treatment due to severe sepsis. Treated with Zosyn, vancomycin. Mckeon was changed. Hematuria gradually resolved with CBI. Urine culture eventually growing Morganella morganii. No obstructive uropathy noted on CT. Also found to have COVID-19 pneumonia, superimposed on bacterial pneumonia, possible aspiration pneumonia. Despite improvement in acute kidney injury, heart rates, steady oxygenation requiring 3-4 L by oxygen mask, his condition has not improved, he does not participate in treatment, removing telemetry leads, pulling out IVs, remains confused. Additionally assessment by echocardiogram identified cardiomyopathy, with LV EF down to 30%, global left ventricular hypokinesis. Although not formally diagnosed, family expressed concerns regarding chronic dementia, which likely is complicating the noted encephalopathy and delirium secondary to sepsis, as well as severe COVID-19 infection. He is not protecting his airway, with likely ongoing aspiration. Unable to take any oral intake, or participate with treatments or therapy. Given ongoing discomfort with continued treatments and monitoring, lack of improvement, continued inability to protect airway, and limited goals of care, as per discussions with his family, both daughter and son have been in consensus regarding discontinuing aggressive treatment/monitoring and transition to comfort measures alone. These were initiated on 02/08, and will be continued over at the group home facility. Physical Exam Const: COMMON NORMALS: no acute distress GENERAL APPEARANCE: frail appearing ORIENTATION/CONSCIOUSNESS: Yes patient obtunded OTHER: Grabbing onto and pulling things on anything attached to his person. HENMT: COMMON NORMALS: oropharynx normal TEETH & GINGIVA: Yes edentulous Neck/C-Spine: COMMON NORMALS: no JVD Resp: AUSCULTATION: rhonchi Cardio: COMMON NORMALS: no JVD, regular rhythm, S1 normal heart sound present, S2 normal heart sound present and No murmurs present (Cardio) RHYTHM: regular rhythm HEART SOUNDS: S1 normal heart sound present and S2 normal heart sound present GI: COMMON NORMALS: Normal to inspection, nondistended, normoactive bowel sounds present, Soft to palpation and non-tender PALPATION: Yes Soft to palpation Extremity: COMMON NORMALS: no joint enlargement and no pedal edema Urinary Catheter Management^: Mckeon: Cath Placed During This Visit: yes, but has since been removed by the nurse Reason for Continuing Indwelling Catheter: Acute Urinary Retention or Obstruction Urinary Catheter Date of Insertion: 02/06/21 Urinary Catheter Time of Insertion: 01:15 Date Urinary Catheter Removed: 02/06/21 Time Urinary Catheter Discontinued: 01:10 Discharge Data Data Completed and Pending: Completed Studies During Hospitalization Category Date Time Status CT cervical spin wo con* 08417 Urge nt Cat Scan 02/05/21 11:[address] chest abd pel wo con Urgent Cat Scan 02/05/21 11:[address] head wo con* 7 0450 Urgent Cat Scan 02/05/21 11:[address] head wo con* 7 0450 Urgent Cat Scan 02/05/21 22:41 Completed XR chest 1V robert ble [id number] Routine Exams 02/07/21 16:07 Completed XR chest 1V robert ble [id number] Stat Exams 02/05/21 11:36 Completed CV. echo limited [id number] Routine Ultrasound 02/06/21 23:47 Completed Pending at discharge Category Date Time Status Blood Culture Sta t Lab 02/05/21 13:13 Results Miscellaneous Jenny t Routine Lab 02/07/21 18:30 Received Labs from last 24 hours 02/07/21 18:30 Misc Test Referenc e Pending Vitals: Last Vital Signs Temp 97.5 F L 02/09/21 07:54 Pulse 122 H 02/09/21 07:54 Resp 24 H 02/09/21 07:58 BP 95/77 02/09/21 07:54 Pulse Ox 91 02/09/21 07:58 Discharge Plan Discharge Patient Disposition: Hospice - Medical Facility Condition: Stable Prescriptions: New morphine 20 mg/5 mL (4 mg/mL) solution 5 mg PO Q2H PRN (Reason: pain) Qty: 100 RF: 0 Alprazolam Intensol 1 mg/mL concentrate 0.25 mg PO TID PRN (Reason: anxiety) Qty: 30 RF: 0 atropine 1 % drops 1 drp sublingual Q8H PRN (Reason: secretions) Qty: 5 RF: 0 Continued diclofenac sodium [Arthritis Pain (diclofenac)] 1 % gel 2 g topical TID PRN (Reason: Pain) RF: 0 Discontinued polyethylene glycol 3350 [Miralax] 17 gram/dose powder 17 g PO DAILY PRN (Reason: Constipation) RF: 0 diltiazem HCl [Cardizem CD] 180 mg capsule,extended release 24hr 180 mg PO DAILY@08 RF: 0 Eliquis 5 mg tablet 5 mg PO BID@08,20 RF: 0 furosemide [Lasix] 40 mg tablet 40 mg PO BID@06,14 RF: 0 atorvastatin [Lipitor] 80 mg tablet 80 mg PO DAILY@08 RF: 0 metolazone 5 mg tablet 5 mg PO DAILY@08 RF: 0 magnesium hydroxide [Sepulveda Milk of Magnesia] 400 mg/5 mL suspension 30 ml PO .EVERY 3 DAYS PRN (Reason: Laxative Effect) RF: 0 multivitamin Tablet 1 tab PO DAILY@08 RF: 0 omeprazole 20 mg capsule,delayed release(DR/EC) 20 mg PO DAILY@08 RF: 0 acetaminophen [Tylenol] 325 mg capsule 650 mg PO Q4H PRN (Reason: Pain) RF: 0 potassium chloride 20 mEq/15 mL liquid 40 meq PO BID@08,17 RF: 0 amoxicillin-pot clavulanate [Augmentin] 875-125 mg Tablet 1 tab PO BID RF: 0 Discharge Orders: Discharge Order (Routine); Ordered 02/09/21 Ordered By: Floyd Hobbs Referrals: SNF, PCP [Other] (As needed.) Manish Pimentel [Primary Care Provider] - Discharge Attestations Time Spent in Discharge Care*: greater than 30 min Quality Metrics Clinical Quality Measures During this hospital stay, did patient experience: None Coding Level of Care Code Acute g FW DC note Diagnoses Acute encephalopathy G93.40 Severe sepsis A41.9; R65.20 Complicated urinary tract infection N39.0 Gross hematuria R31.0 Acute renal failure N17.9 Acute renal failure type: unspecified Atrial fibrillation with rapid ventricular response I48.91 COVID-19 U07.1 Chronic anticoagulation Z79.01 CHF (congestive heart failure) I50.9 Heart failure type: unspecified Heart failure chronicity: chronic Hyperlipidemia E78.5 Hyperlipidemia type: unspecified Hypertension I10 Hypertension type: unspecified Chronic indwelling Mckeon catheter Z97.8
--- NOTE | 2021-02-09 16:16 | PC.NURSE ---
Discharge Note Patient discharged to [facility] via ambulance accompanied by ambulance personnel. Discharge instructions reviewed with patient and/or passenger service representative. Mobile pharmacy medications and/or prescriptions provided. Belongings/home medications returned.
== END 2021-02-09 16:00 | disposition hospice, inpatient (51) | DRG 871 ==
LOC: ER 23:19 → CSU 23:53
PROVIDERS: Admitting Provider Hospitalist; Emergency Provider Emergency Medicine; PCP Family Medicine; Visit Provider Internal Medicine
DX: A41.9 Sepsis, unspecified organism (principal); U07.1 COVID-19; J12.82 Pneumonia due to coronavirus disease 2019; G93.41 Metabolic encephalopathy; J69.0 Pneumonitis due to inhalation of food and vomit; T83.518A Infection and inflammatory reaction due to other urinary catheter, initial encounter; I50.22 Chronic systolic (congestive) heart failure; N17.9 Acute kidney failure, unspecified; I42.9 Cardiomyopathy, unspecified; E87.0 Hyperosmolality and hypernatremia; F05 Delirium due to known physiological condition; E87.2 Acidosis; R65.20 Severe sepsis without septic shock; I71.4 Abdominal aortic aneurysm, without rupture; I48.91 Unspecified atrial fibrillation; I11.0 Hypertensive heart disease with heart failure; K21.9 Gastro-esophageal reflux disease without esophagitis; R31.0 Gross hematuria; E78.5 Hyperlipidemia, unspecified; Z97.0 Presence of artificial eye; Z87.891 Personal history of nicotine dependence; R33.9 Retention of urine, unspecified; Y73.1 Therapeutic (nonsurgical) and rehabilitative gastroenterology and urology devices associated with adverse incidents; Z87.440 Personal history of urinary (tract) infections; I95.9 Hypotension, unspecified; F03.90 Unspecified dementia, unspecified severity, without behavioral disturbance, psychotic disturbance, mood disturbance, and anxiety; I34.0 Nonrheumatic mitral (valve) insufficiency; B96.4 Proteus (mirabilis) (morganii) as the cause of diseases classified elsewhere
CPT/HCPCS: 36415; 36416; 51702; 70450; 71045; 71250; 72125; 74176; 80048; 80053; 81001; 82550; 82962; 83605; 83735; 84100; 84145; 84484; 84550; 85025; 85610; 85730; 87040; 87077; 87086; 87186; 87426; 87635; 87641; 93005; 93308; 96365; 96366; 96367; 96368; 96372; 96375; 99285; C9113; J1100; J1160; J1630; J1644; J2060; J2270; J2543; J3370; J3490; J7040; J7050